=== PATIENT | female | born 1970 | race Caucasian/White ===

== ENCOUNTER 2023-08-21 09:54 | Inpatient (IN) | payer OTHER, SELFPAY ==
[2023-08-21] VITALS (29 sets, daily range): BP systolic 105–149; BP diastolic 66–97; BMI 39.5; BMI 39.8
[2023-08-21] MEDS: LOW STRENGTH ASPIRIN 81 MG PO ×5 (07:31→07:33)
[2023-08-21] MEDS: NITROGLYCERIN PREMIX 250 IV (08:55)
--- NOTE | 2023-08-21 08:59 | ITS.CL.CATH ---
Stereoptician - Catheterization
Cardiac Catheterization
Procedure Report:
LEFT HEART CATHETERIZATION
Date of Procedure: August 21, 2023
Procedures performed:
1: Coronary angiography
2: Left ventricular hemodynamic assessment
Primary Care Physician: Dr. Lakia Navarro
Primary Petroleum Refinery Operator: Dr. Reza Martin
INDICATION: The patient is a 53-year-old woman with a past medical history of hypertension and hyperlipidemia who presents with crescendo angina. She reports experiencing chest discomfort with going up stairs as recently as last night.
ACCESS: The patient was prepped and draped in usual sterile fashion. A 5 Swiss sheath was placed in the right radial artery using the Seldinger over the wire technique.
HEMODYNAMIC FINDINGS (mmHg):
LV(s/d,EDP): 129/15, 24
Ao(s/d,m): 129/78, 93
ANGIOGRAPHIC FINDINGS:
Single-plane Left Ventriculography in [facility] Projection: Not done. Echocardiography performed on November 29, 2022 was benign with normal LV function and no significant valvular disease. EF at that time was 60 to 65%.
Coronary Angiography:
Dominance: Right
Left Main: Distal hazy 70 to 80% stenosis.
Left Anterior Descending: The left anterior descending artery is a medium to large caliber vessel that has a smooth mid 50% stenosis. It gives rise to 1 major diagonal branch which takes off distal that stenosis. The distal vessel appears
angiographically normal and an excellent surgical target.
Ramus intermedius: Large caliber bifurcating vessel that is widely patent and is a good surgical target.
Left Circumflex: The left circumflex is a medium caliber nondominant system that gives rise to 1 major bifurcating obtuse marginal branch. The circumflex has a smooth mid 40% stenosis. Bifurcating OM1 appears to be a good surgical target.
Right Coronary: Medium caliber dominant vessel that gives rise to a medium caliber posterior descending artery and smaller posterior left ventricular branch system. There are moderate nonobstructive luminal irregularities in the mid RCA. The other
vessels appear widely patent with normal flow and no obstructive disease.
Fluoroscopy Time (min): 4.4
Radiation Dose (mGy): 468
DAP (Gy.cm2): 29
Closure device: None. A TR band was applied for hemostasis at the right wrist.
Complications: None.
ASSESSMENT:
1: Significant obstructive left main disease as described above. Will admit for urgent CABG evaluation.
2: Elevated left regular filling pressures.
CONCLUSIONS and RECOMMENDATIONS:
1: Admit to CVICU for urgent CABG evaluation. Start IV nitroglycerin.
2: Will repeat echo now.
Adrianna Da Silva M.D.
Copy to: Dr. Lakia Navarro
[2023-08-21] MEDS: VERSED 1 MG IV (09:00)
--- NOTE | 2023-08-21 09:08 | PTCARENOTE ---
Pt recd s/p cath procedure. She was having what she described as a pinching pain, NTG started at 10mcg, BP started at 149/74 now her BP is 128/77 ECG obtained no change. And Robert saw pt and and spoke briefly regarding the
procedure. She became upset and Versed 1mg given IV. pt appears comfortable now stated its better
[2023-08-21] MEDS: NSS 1000 IV (09:21)
--- NOTE | 2023-08-21 09:45 | PTCARENOTE ---
report given to PEST CONTROL SUPERVISOR. Pt is conversive and appears comfortable, Bp 130/77. NSR 62. Radial band had a slight leak and replaced the 3ml sugey t was removed
--- NOTE | 2023-08-21 09:50 | CONSULT.CT ---
Consultation
-
Date/Time Consultation Requested: 08/21/23 1000
Date/Time Consultation Performed: 08/21/23 1025
Requesting Provider: Myles Da Silva MD
Performing Provider: Pal Bacon MD
Reason for Consultation: CABG Eval
Patient History
Physicians
Family Physician: Lakia Navarro
Outpatient Technician Plant And Maintenance: Reza Martin DO
Inpatient Technician Plant And Maintenance: Myles Da Silva
History of Present Illness
53-year-old female with past medical history of HLD, HTN, pre-DM, hypothyroidism, Summer's disease, fibromyalgia, fatty liver, and mast cell activation syndrome presented to [facility] for a elective left heart cath. She has been
experiencing chest pain and shortness of breath with minimal activity on and off for 1 year. She now lives more of a sedentary lifestyle to avoid chest pain.
During the left heart cath it was found that she had 70 to 80% stenosis of the left main and was taken to the CCL recovery area. While she was there, she c/o of mild CP and was given versed and started on a NTG gtt. CT was consulted for surgical
eval.
Past Medical History
Past Medical History: Angina, HTN, Hypercholesterolemia, Hypothyroidism, Psychiatric (Anxiety) and SOB
HLD, HTN, pre-DM, hypothyroidism, Summer's disease, fibromyalgia, fatty liver, and mast cell activation syndrome
Past Surgical History
Past Surgical History: Appendectomy
Dental History
Partial Upper Dentures
Family History
Mother: at Age
Father: at Age
Family Medical History: Aneurysm and CAD
Social History
Alcohol: Former (Quit in 2009)
Drug: None
Tobacco: Former Smoker (Quit in 2009)
Personal:
Living: With Spouse
Employment: Not Employed
Allergies
Allergy/AdvReac Type Severity Reaction Status Date / Time
[id number] Reductase Allergy Severe Hives Verified 08/21/23 07:30
Inhibitor
Home Medications
�Medication �Instructions �Recorded �Confirmed �Type
aspirin 81 mg capsule 324 mg PO DAILY 08/21/23 08/21/23 History
atorvastatin 10 mg tablet (Lipitor) 10 mg PO HS 08/21/23 08/21/23 History
duloxetine 30 mg capsule,delayed 30 mg PO DAILY 08/21/23 08/21/23 History
release (Cymbalta)
levothyroxine 137 mcg tablet 137 mcg PO DAILY 08/21/23 08/21/23 History
(Synthroid)
propranolol 80 mg capsule,extended 80 mg PO DAILY 08/21/23 08/21/23 History
release 24 hr
valsartan 40 mg tablet (Diovan) 80 mg PO DAILY 08/21/23 08/21/23 History
Review of Systems
-
History Source: Patient
General: Reports Fatigue
HEENT: Reports No Symptoms
Respiratory: Reports SOB
Cardiac: Reports Chest Pain
Abdomen/GI: Reports No Symptoms
: Reports No Symptoms
Musculoskeletal: Reports No Symptoms
Skin: Reports No Symptoms
Neurological: Reports No Symptoms
Vascular: Reports No Symptoms
Physical Exam
Vital Signs
Temp 97 F 08/21/23 07:20
Temp route: Oral 08/21/23 07:20
Pulse 65 08/21/23 07:20
Resp Rate 16 08/21/23 07:20
Blood pressure 136/71 08/21/23 07:20
Blood pressure extremity used: Left upper arm 08/21/23 09:40
Position: Lying 08/21/23 09:40
SaO2 97 08/21/23 08:43
Oxygen Mode of Delivery Room air 08/21/23 09:40
Can the patient verbally communicate their pain? Yes 08/21/23 09:40
Actual Weight 104.326 kg 08/21/23 08:55
Body Mass Index (BMI) 39.5 08/21/23 08:55
Exam
General: Well Developed and Well Nourished
HEENT: Normocephalic
Respiratory: Clear
Cardiac: S1/S2
GI: Soft and Other (Obese)
Rectal: Deferred by Provider
Skin: Warm
Neuro: AO x 3
Extremities: Pulses (+1)
Lymph: No Lymphadenopathy
Psych: Calm
Assessment / Plan
-
53-year-old female with past medical history listed above presented for an elective cath after having chest pain and shortness of breath for [address] surgery consulted for surgical evaluation of left main disease.
#CAD
-Patient's case will be discussed with attending physician. Further details regarding surgical timing intervention will be determined after attending physicians full evaluation
-Routine preoperative cardiothoracic surgery orders will be initiated.
-STS risk stratification score will be calculated after preoperative testing is complete
-Continue nitroglycerin and heparin gtt per cardiology.
- Will start Oral anxiolytics
--- NOTE | 2023-08-21 10:00 | PTCARENOTE ---
pt received from CCL, oriented. SB/SR on the monitor, HR 50-60s. SBP 110-140s. palpable pulses. pt on RA, 95-100% POX. lungs clear. denies CP or SOB. pt abdomen round s/n, denies n/v. diet ordered. R radial TR band in place. PIV. Nitro gtt running
as ordered. admission interview completed. home meds reviewed in CCL. allergies confirmed. see worklist for VS, I&O, and assessment.
--- NOTE | 2023-08-21 12:00 | PTCARENOTE ---
pt VSS, R radial site c/d/i, no s/s of bleeding or hematoma. pt denies CP, nitro gtt running as ordered.
[2023-08-21 12:26] LABS: Hematocrit 36.7 % (37.0-47.0); Mean Corp Hgb Conc. 32.7 g/dL (33.0-37.0); Mean Corpuscular Hgb 29.2 pg (27.0-31.0); Mean Corpuscular Volume 89.3 fL (81.0-99.0); Mean Platelet Volume 10.6 fL (7.4-10.4); Platelet Count 266 10^3/uL (130-400); Red Blood Cell Count 4.11 10^6/uL (4.20-5.40); Red Cell Dist. Width 13.4 % (11.5-14.5); White Blood Cell Count 6.1 10^3/uL (4.8-10.8)
[2023-08-21 12:45] LABS: APTT 27.1 Sec (23.4-35.0)
[2023-08-21] MEDS: TYLENOL 650 MG PO ×2 (13:36→17:37)
[2023-08-21] MEDS: XANAX 0.5 MG PO ×2 (13:36→20:08)
--- NOTE | 2023-08-21 13:58 | W.PN.UPDATE ---
Update Note
Progress Note Update
Procedure Type:�Isolated CABG
PERIOPERATIVE OUTCOME ESTIMATE %
Operative Mortality 0.512%
Morbidity & Mortality 3.5%
Stroke 0.364%
Renal Failure 0.363%
Reoperation 1.19%
Prolonged Ventilation 1.81%
Deep Sternal Wound Infection 0.27%
Long Hospital Stay (>14 days) 1.08%
Short Hospital Stay (<6 days)* 69.6%
Clinical Summary
Planned Surgery: Isolated CABG, Urgent, First cardiovascular surgery
Demographics: 53 year old, White, female, 105kg, 163cm, BMI: 39.5 kg/m�
Lab Values: Creatinine: 0.9 mg/dL, Hematocrit: 36.7%, WBC Count: 6.1 10�/�L, Platelet Count: 744991 cells/�L
Substance Abuse: Former smoker
Risk Factors / Comorbidities: Hypertension, Family Hx of CAD
Cardiac Status: Ejection Fraction = 70%
Coronary Artery Disease: 1 vessel diseased, Left Main Stenosis >=50%, Unstable Angina
Valve Disease: Trivial/Trace MR
[2023-08-21] MEDS: CYMBALTA DELAYED RELEASE 30 MG PO (14:45)
--- NOTE | 2023-08-21 16:10 | PTCARENOTE ---
pt VSS, R radial site c/d/i, no s/s of bleeding or hematoma. pt denies CP, nitro gtt running as ordered. Tylenol given for DORSEY w/ improvement. PRN Xanax 0.5mg PO given for anxiety. pt ambulates to bathroom to void.
[2023-08-21] MEDS: HEPARIN 25000 UNITS/250 ML IV (16:34)
--- NOTE | 2023-08-21 16:38 | CM ---
CM following for DC planning needs.
Met w/ patient at bedside to complete initial assessment.
Pt. resides w/ spouse and 2 sons (11 yo, 13 yo) in a private, multi level home. Functionally, patient is indep. at baseline w/ ADLs, mobility without the use of any assisted device.
Pt. has Rx plan and uses [facility] for Rx needs.
Will plan to meet w/ patient on ., 08/21 for pre-op teaching.
CM to follow.
[2023-08-21] MEDS: LIPITOR 80 MG PO (17:36)
--- NOTE | 2023-08-21 18:27 | PTCARENOTE ---
attempted to titrate Nitro gtt to 5mcg/min. pt states / 'chest pinching', BLOWER MECHANIC aware, Nitro increased to 10mcg/min. Tylenol given for DORSEY. at bedside.
--- NOTE | 2023-08-21 20:00 | PTCARENOTE ---
Assumed care of patient at 1900. Patient is AAOx4, follows commands appropriately, moves all extremities. Lung sounds are clear and equal bilaterally, patient is on RA saO2 at 97%. Heart sounds have a regular rhythm, patient is SR/ST on the monitor.
Patient has normal palpable pulses and no edema. Patient has active BS throughout all four quadrants. There is a R wrist puncture from cardiac cath with 4x4 gauze dressing that is CDI. Patient has R AC and L hand PIV. Heparin @1400 units and Nitro
@10mcg. Patient scheduled for surgery tomorrow will start prep tonight. No c/o pain at this time. Patient is stable.
[2023-08-21] MEDS: FIORICET 1 TAB PO ×2 (20:08→23:07)
--- NOTE | 2023-08-21 20:20 | PTCARENOTE ---
Assumed care of patient at 1900. Patient found resting in bed at time of assessment. Patient is AOx4, follows commands appropriately, moves all extremities. Patient reports anxiety at this time. Lung sounds are clear and equal bilaterally. Patient
is on RA saO2 at 98%. Heart sounds have a regular rate and rhythm. Patient has normal palpable pulses. There is no edema noted. Patient has active BS throughout all four quadrants. Reports poor appetite during day. Patient has L hand PIV receiving
heparin at 1000 units and Nitro at 10mcg. Patient also has puncture of R wrist from CC with 4x4 gauze dressing that is CDI. Patient has no complaints at this time. VSS.
[2023-08-21] MEDS: LOPRESSOR 12.5 MG PO (20:59)
[2023-08-22] VITALS (16 sets, daily range): BP systolic 107–140; BP diastolic 56–89; BMI 39.6
--- NOTE | 2023-08-22 | PTCARENOTE ---
Patient reassessed. Remains NSR on the monitor. Recurrent c/o pain 2/2 migraine. Patient given tylenol and firoricet for pain with some relief. VSS. Heparin and Nitro gtt remain on. Heparin gtt adjusted to 1200 per PTT.
--- NOTE | 2023-08-22 03:00 | PTCARENOTE ---
Patient reassessed. VSS. Continues to c/o severe head pain and some nausea 2/[address] TORCH HEATER notified. Tylenol and firorcet administered. Given 1xdose of benadryl and reglan. Patient sleeping at this time. AM labs obtained. Patient is stable.
[2023-08-22] MEDS: SYNTHROID 137 MCG PO (05:02)
[2023-08-22] MEDS: FIORICET 1 TAB PO ×4 (05:02→23:47)
[2023-08-22] MEDS: TYLENOL 650 MG PO ×2 (05:02→19:22)
--- NOTE | 2023-08-22 05:30 | PTCARENOTE ---
Patient reassessed. VSS. Continues to c/o severe head pain and some nausea 2/[address] LOCKER ROOM SUPERVISOR notified. Tylenol and firorcet administered. Given 1xdose of benadryl and reglan. Patient sleeping at this time. AM labs obtained. Patient is stable.
[2023-08-22] MEDS: BENADRYL 12.5 MG IV (05:36)
[2023-08-22] MEDS: REGLAN 10 MG IV ×2 (05:37→23:47)
[2023-08-22 06:19] LABS: Hematocrit 36.7 % (37.0-47.0); Hemoglobin 12.4 g/dL (12.0-16.0); Mean Corp Hgb Conc. 33.8 g/dL (33.0-37.0); Mean Corpuscular Volume 88.9 fL (81.0-99.0); Mean Platelet Volume 10.5 fL (7.4-10.4); Platelet Count 239 10^3/uL (130-400); Red Blood Cell Count 4.13 10^6/uL (4.20-5.40); Red Cell Dist. Width 13.3 % (11.5-14.5); White Blood Cell Count 7.1 10^3/uL (4.8-10.8)
[2023-08-22 06:22] LABS: INR 1.04; PT 13.4 Sec (11.4-14.6)
[2023-08-22 06:23] LABS: APTT 39.4 Sec (23.4-35.0)
[2023-08-22 06:48] LABS: ALT (SGPT) 40 U/L (0-35); AST (SGOT) 33 U/L (14-36); Albumin 4.3 g/dl (3.5-5.0); Alkaline Phosphatase 122 U/L (38-126); Blood Urea Nitrogen 10 mg/dl (7-17); Calcium 9.6 mg/dl (8.4-10.2); Carbon Dioxide 25 mmol/L (22-30); Chloride 103 mmol/L (98-107); Direct Bilirubin 0.4 mg/dl (0.0-0.4); Estimated Creatinine Clearance > 125 ml/min; Glucose 142 mg/dl (70-99); HDL Cholesterol 35 mg/dl; Potassium 4.7 mmol/L (3.5-5.1); Sodium 138 mmol/L (135-145); Total Bilirubin 0.7 mg/dl (0.2-1.3); Total Cholesterol 227 mg/dl (50-199); Total Protein 7.2 g/dl (6.3-8.2); Triglyceride 420 mg/dl (10-149); eGFR > 60.00
[2023-08-22 07:14] LABS: LDL Cholesterol, Direct 125 mg/dl
[2023-08-22] MEDS: LOPRESSOR 12.5 MG PO (07:59)
[2023-08-22] MEDS: LOW STRENGTH ASPIRIN 81 MG PO (07:59)
[2023-08-22] MEDS: CYMBALTA DELAYED RELEASE 30 MG PO (08:00)
[2023-08-22] MEDS: XANAX 0.5 MG PO ×2 (08:00→14:06)
--- NOTE | 2023-08-22 08:00 | PTCARENOTE ---
pt received from previous RN, oriented, in bed. SR on the monitor, HR 70s. no c/o CP or SOB. Nitro gtt running as ordered. palpable pulses. pt on RA, 98% POX, lungs clear. pt abdomen s/n, denies n/v presently. tolerating diet. ambulates to bathroom
to void. R wrist site c/d/i. PIV x2. heparin gtt running per protocol. see worklist for VS, I&O, and assessment.
[2023-08-22 09:01] LABS: Glycohemoglobin (HgbA1c) 6.3 % (4.0-5.6)
--- NOTE | 2023-08-22 09:47 | W.PN.UPDATE ---
Update Note
Progress Note Update
Very pleasant 53 y/o with recent cath showing left main cad. Pt with multiple comorbidities. Pt has complaints of daily exertional angina for over 1 year, with associated sob. It has worsened lately, and she had cp post cath requiring Heparin and
Iv ntg. Cath reviewed with patient. I agree grafts to lad/ramus/om. Echo normal. Recommendation for cabg explained. Risks, complications, benefits and alternatives all reveiwed. All questions answered. Pt is agreeable to proceed with cabg in
am.
--- NOTE | 2023-08-22 10:49 | W.PN.CARDCBS ---
Addendum entered and electronically signed by Reza Hurt MD 08/22/23 14:18:
Attending addendum: Patient seen and examined. PA note reviewed and findings confirmed by me. Briefly, 53 y/o female with familial hyperlipidemia under marginal control. She has a history of 'mast cell activation' with multiple allergies. She
presented for coronary angiography and was found to have multivessel coronary artery disease for which she is now referred for coronary artery bypass grafting
.-08/21/2023: LM: Hazy 70-80% stenosis. LAD mid 50%, RI: Widely patent sizable vessel. LCx: OM1 smooth 40$, RCA: mod noncritical LI. LVEF: 60-65%
RECOMMENDATION:
-Aspirin 81 mg daily
-Continue heparin and IV nitroglycerin until surgical intervention
-CT surgical evaluation ongoing
-Agree with high intensity statin therapy including 80 mg of atorvastatin. She will likely need ezetimibe and/or PCSK9 which can be evaluated as an outpatient
Original Note:
Today's Communication / Plan
-
Heparin and Nitro gtt running
Cont Reglan as a PRN for now and then stop once Nitro gtt stopped due to potential increase in Reglan side effects
Impression / Plan
-
PCP: Dr. Palencia
Cardiology: Dr. Martin
Impression:
Significant obstructive LM CAD by cath 08/21/23
Chest pain leading to cath
FH CAD
Untreated hyperlipidemia
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
FMR
Obese, BMI 39.6
Fatty liver
h/o ETOH use disorder, sober since 2008
Hyperglycemia and pre-diabetes
Echo 08/21/2023: EF 76%, normal diastolic function, normal RV size and function, no significant valvular pathology
Plan:
-Patient follows with Dr. Martin at [facility]. Patient has a h/o HTN, untreated hyperlipidemia and FH of CAD and complained with chest pain and BLACK. Patient had an unremarkable Lexiscan mibi in 2022 and the decision was made to proceed with cardiac cath.
Patient came to for elective cardiac cath 08/21/23 and was found to have significant obstructive left main disease. Patient was admitted and is now on Heparin and Nitro gtt. Nitro gtt started for pinching type of chest pain.
-Patient remains on Heparin gtt. Plt # stable at 239.
-Nitro gtt running at 10. Patient with DORSEY/migraine overnight that improved with Reglan. Patient reported symptomatic improvement with Reglan and now ordered as a PRN q 6 hours. Lexicomp interaction check performed by me shows that toxicity effects
of Reglan might be increased when also given with duloxetine. Given that OR is planned for AM and that Nitro gtt will then be turned off will continue with Reglan and d/c once Nitro gtt stopped.
-Echo reviewed above. No significant valve disease.
-Direct LDL 125, TG 420, total cholesterol 227. Patient had flushing and dizziness with Crestor and Pravachol in the past related to mast cell activation syndrome. Patient was previously recommended statin by her primary property technician and referred to
an real estate listing consultant to navigate the mast cell activation syndrome and she did not see the real estate listing consultant, but was tolerating atorvastatin 10 mg daily as of 08/13/23 ATC appt. Consider addition of PCSK9 as an outpatient.
-Hyperglycemia noted on labs and HgbA1c was 6.3 consistent with pre-diabetes.
Progress Note - Lumber [place]ier
Subjective
Date of Service: August 22, 2023
Reglan helped migraine overnight
Objective
Labs:
08/22/23 05:57
08/22/23 05:57
Labs
Hgb 12.4 g/dL (12.0-16.0) 08/22/23 05:57
Hct 36.7 % (37.0-47.0) L 08/22/23 05:57
Plt Count 239 10^3/uL (130-400) 08/22/23 05:57
PT 13.4 Sec (11.4-14.6) 08/22/23 05:57
INR 1.04 08/22/23 05:57
APTT 39.4 Sec (23.4-35.0) H 08/22/23 05:57
Sodium 138 mmol/L (135-145) 08/22/23 05:57
Potassium 4.7 mmol/L (3.5-5.1) 08/22/23 05:57
BUN 10 mg/dl (7-17) 08/22/23 05:57
Creatinine 0.6 mg/dL (0.6-1.0) 08/22/23 05:57
Glucose 142 mg/dl (70-99) H 08/22/23 05:57
Vital Signs and I&O:
Vital Signs
Temp Pulse Resp BP Pulse Ox
97.8 F 87 16 120/80 98
08/22/23 08:00 08/22/23 10:30 08/22/23 08:00 08/22/23 08:00 08/22/23 10:35
Vital Signs
Temp Pulse Resp BP Pulse Ox
97.8 F 87 16 120/80 98
08/22/23 08:00 08/22/23 10:30 08/22/23 08:00 08/22/23 08:00 08/22/23 10:35
Intake & Output
08/20/23 08/21/23 08/22/23 08/23/23
06:59 06:59 06:59 06:59
Intake Total 621.3 / 621.3 46.5 / 46.5
Balance 621.3 / 621.3 46.5 / 46.5
--- NOTE | 2023-08-22 12:30 | PTCARENOTE ---
pt VSS, no changes in assessment. no c/o CP or SOB.
[2023-08-22 12:49] LABS: Glucose - Point of Care 135 mg/dl (70-99)
[2023-08-22] MEDS: HEPARIN 25000 UNITS/250 ML IV (13:00)
[2023-08-22 13:33] LABS: APTT 74.8 Sec (23.4-35.0)
--- NOTE | 2023-08-22 15:22 | CM ---
CM following for DC planning needs.
Met w/ patient at bedside to complete pre-op teaching.
Plan for CABG 08/22.
Reviewed pre and post op routines.
Discussed post op restrictions to include lifting, driving, flying and sternal precautions.
Cardiac Surgery booklet provided.
Discussed post op MD appointments, Cardiac Rehab and visit from CT Transitional Care RN.
Plan for CABG 08/22
Antic. DC plan is for home w/ CT Transitional Care RN.
CM to follow.
[2023-08-22] MEDS: DULCOLAX 5 MG PO (15:31)
[2023-08-22] MEDS: MYLICON 80 MG PO (15:31)
--- NOTE | 2023-08-22 15:47 | PTCARENOTE ---
Assumed care of patient at 1500. Pt is awake, alert, and oriented. No complaints of chest pain at this time. Pt remains SR with HR 90's. BP 132/82 MAP 96. Pulse oximetry 97% on room air. Bowel sounds active. Pt requesting stool softener, CT PA
aware, Dulcolax administered. Voiding without issue in bathroom. Right radial site CDI, pulse palpable. Pt remains on heparin gtt at 1400units/hr and Nitro gtt at 10mcg/min. Pt currently resting comfortably in bed with call cline within reach.
[2023-08-22] MEDS: LIPITOR 80 MG PO (17:34)
[2023-08-22] MEDS: XANAX 1 MG PO (18:02)
[2023-08-22 18:04] LABS: Glucose - Point of Care 104 mg/dl (70-99)
[2023-08-22] MEDS: LOPRESSOR 25 MG PO (19:24)
[2023-08-22 20:08] LABS: APTT 73.1 Sec (23.4-35.0)
[2023-08-23] VITALS (14 sets, daily range): BP systolic 87–133; BP diastolic 56–86; BMI 39.3
--- NOTE | 2023-08-23 01:53 | PTCARENOTE ---
Addendum entered by Johnnie Gale RN 08/23/23 04:35:
Patient placed on 2L O2 HS per CT PA given patient's tachycardia and general discomfort. saO2 at 97% prior to oxygen application.
Original Note:
Patient reassessed. VSS. Firocet and Reglan given for head pain and nausea. SR on the monitor.
--- NOTE | 2023-08-23 04:36 | PTCARENOTE ---
Patient reassessed. Patient is SR/ST on the case monitor. All other VSS. Surgical prep completed. AM labs obtained. Patient resting in bed at this time.
[2023-08-23] MEDS: FIORICET 1 TAB PO (05:50)
[2023-08-23 05:51] LABS: Hemoglobin 12.2 g/dL (12.0-16.0); Mean Corp Hgb Conc. 33.9 g/dL (33.0-37.0); Mean Corpuscular Hgb 29.5 pg (27.0-31.0); Mean Platelet Volume 10.4 fL (7.4-10.4); Platelet Count 245 10^3/uL (130-400); Red Blood Cell Count 4.14 10^6/uL (4.20-5.40); Red Cell Dist. Width 13.3 % (11.5-14.5); White Blood Cell Count 7.2 10^3/uL (4.8-10.8)
[2023-08-23] MEDS: LOPRESSOR 25 MG PO (05:51)
[2023-08-23 06:02] LABS: APTT 75.8 Sec (23.4-35.0)
[2023-08-23] MEDS: SYNTHROID 137 MCG PO (06:28)
[2023-08-23] MEDS: HEPARIN 25000 UNITS/250 ML IV (07:37)
--- NOTE | 2023-08-23 08:00 | PTCARENOTE ---
pt received from previous RN, oriented, in bed. SR on the monitor, HR 70s-90s. no c/o CP or SOB. Nitro gtt running as ordered. palpable pulses. pt on RA, 96-99% POX, lungs clear. pt abdomen s/n, denies n/v presently. NPO. ambulates to bathroom to
void. R wrist site c/d/i. PIV x2. heparin gtt running per protocol. see worklist for VS, I&O, and assessment.
[2023-08-23] MEDS: LOPRESSOR PO (08:29)
[2023-08-23] MEDS: LOW STRENGTH ASPIRIN PO (08:29)
[2023-08-23] MEDS: MAGNESIUM OXIDE 500 MG PO (08:53)
[2023-08-23] MEDS: BACTROBAN 2% OINTMENT 1 APPLIC NASAL ×2 (08:54→20:36)
[2023-08-23] MEDS: CYMBALTA DELAYED RELEASE 30 MG PO (08:54)
[2023-08-23] MEDS: PROTONIX 40 MG PO (08:54)
--- NOTE | 2023-08-23 09:04 | CM ---
Patient in OR today for CABG.
Plan is for home w/ CT Transitional Care RN.
CM to follow.
[2023-08-23] MEDS: TYLENOL 650 MG PO (09:52)
--- NOTE | 2023-08-23 10:04 | PTCARENOTE ---
pt c/o headache, ice pack applied to back of neck. PRN Tylenol given.
--- NOTE | 2023-08-23 10:12 | W.PN.CARDCBS ---
Today's Communication / Plan
-
PLAN:
-CABG planned this afternoon
Impression / Plan
-
PCP: Dr. Palencia
Cardiology: Dr. Martin
Impression:
Significant obstructive LM CAD by cath 08/21/23
Chest pain leading to cath
FH CAD
Hyperlipidemia
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
FMR
Obese, BMI 39.6
Fatty liver
h/o ETOH use disorder, sober since 2008
Hyperglycemia and pre-diabetes
Hx of migraine DORSEY
Echo 08/21/2023: EF 76%, normal diastolic function, normal RV size and function, no significant valvular pathology
Plan:
-CABG planned this afternoon.
-Continue high intensity statin
-Patient remains on Heparin gtt. Plt # stable at 245
-Nitro gtt running at 10.
-Patient with DORSEY/migraine overnight
-Echo reviewed above. No significant valve disease.
-Direct LDL 125, TG 420, total cholesterol 227. Tolerating higher dose of statin for now. Hx of flushing and dizziness with Crestor and Pravachol in the past related to mast cell activation syndrome. Patient was previously recommended statin by her
primary ceramic saw tender and referred to an compliance examiner to navigate the mast cell activation syndrome and she did not see the compliance examiner, but was tolerating atorvastatin 10 mg daily as of 08/13/23 ATC appt. Consider addition of PCSK9 as an outpatient.
-Hyperglycemia noted on labs and HgbA1c was 6.3 consistent with pre-diabetes.
Progress Note - Feed Mixer
Subjective
Date of Service: August 23, 2023
Complaining of migraine headache pain
Objective
Labs:
08/23/23 05:40
08/22/23 05:57
Labs
Hgb 12.2 g/dL (12.0-16.0) 08/23/23 05:40
Hct 36.0 % (37.0-47.0) L 08/23/23 05:40
Plt Count 245 10^3/uL (130-400) 08/23/23 05:40
PT 13.4 Sec (11.4-14.6) 08/22/23 05:57
INR 1.04 08/22/23 05:57
APTT 75.8 Sec (23.4-35.0) H 08/23/23 05:40
Sodium 138 mmol/L (135-145) 08/22/23 05:57
Potassium 4.7 mmol/L (3.5-5.1) 08/22/23 05:57
BUN 10 mg/dl (7-17) 08/22/23 05:57
Creatinine 0.6 mg/dL (0.6-1.0) 08/22/23 05:57
Glucose 142 mg/dl (70-99) H 08/22/23 05:57
Vital Signs and I&O:
Vital Signs
Temp Pulse Resp BP Pulse Ox
97.8 F 90 18 107/73 96
08/23/23 06:30 08/23/23 10:00 08/23/23 08:00 08/23/23 07:44 08/23/23 09:31
Vital Signs
Temp Pulse Resp BP Pulse Ox
97.8 F 90 18 107/73 96
08/23/23 06:30 08/23/23 10:00 08/23/23 08:00 08/23/23 07:44 08/23/23 09:31
Intake & Output
08/20/23 08/21/23 08/22/23 08/23/23
23:59 23:59 23:59 23:59
Intake Total 21.3 / 21.3 708.5 / 708.5 46.5 / 46.5
Balance 21.3 / 21.3 708.5 / 708.5 46.5 / 46.5
Physical Exam
Physical Exam
Gen: Awake, alert and complaining of DORSEY
HEENT: NC/AT, sclera anicteri
Lungs: Clear anterior
CV: RRR
Ext: No edema
--- NOTE | 2023-08-23 11:02 | W.CVOR.SURPR ---
CVOR Surgeon Immed Pre Op
-
I have examined this patient prior to performance of the scheduled procedure.
The patient's condition is unchanged from the time of the dictated/written History and
Physical and the patient is able to undergo the scheduled procedure.
[2023-08-23 11:15] LABS: Glucose - Point of Care 104 mg/dl (70-99)
--- NOTE | 2023-08-23 13:06 | PTCARENOTE ---
pt VSS, blood sugar 104. heparin gtt off call or contact centre operator to OR, pt sent to CVOR on nitro gtt, report given to CVOR RN.
[2023-08-23 13:24] LABS: ACT+ - POC 115 Seconds (82-134)
[2023-08-23 13:28] LABS: B.E. - POC -0.2 mmol/L; Glucose - POC 104 mg/dl (65-99); HCO3 - POC 24 mmol/L (21-29); Hematocrit - POC 36 % PCV (37-47); Hemodilution- POC No; Hemoglobin Calculated - POC 12.1; Ionized Calcium - POC 1.14 mmol/L (1.12-1.27); O2 Saturation %Calculated-POC 99.9 5 (92-96); PCO2 - POC 38 mmHg (35-45); PO2 - POC 298 mmHg (80-100); Potassium - POC 3.8 mmol/L (3.6-5.0); Sodium - POC 141 mmol/L (135-145); pH - POC 7.42 (7.35-7.45)
[2023-08-23 14:02] LABS: Urine Albumin Negative (Neg - Trace); Urine Bilirubin Negative (Negative); Urine Character Clear (Clear); Urine Color Straw; Urine Glucose Negative (Negative); Urine Ketone Negative (Negative); Urine Leukocyte Negative (Negative); Urine Nitrite Negative (Negative); Urine Occult Blood Negative (Negative); Urine Urobilinogen Negative (Neg - 1+)
[2023-08-23 15:14] LABS: B.E. - POC -1.9 mmol/L; Glucose - POC 165 mg/dl (65-99); HCO3 - POC 23 mmol/L (21-29); Hematocrit - POC 32 % PCV (37-47); Hemodilution- POC No; Ionized Calcium - POC 1.15 mmol/L (1.12-1.27); O2 Saturation %Calculated-POC 99.4 5 (92-96); PCO2 - POC 41 mmHg (35-45); PO2 - POC 165 mmHg (80-100); Potassium - POC 4.2 mmol/L (3.6-5.0); Sodium - POC 140 mmol/L (135-145); pH - POC 7.36 (7.35-7.45)
[2023-08-23 15:32] LABS: ACT+ - POC 565 Seconds (82-134)
[2023-08-23 15:58] LABS: ACT+ - POC 496 Seconds (82-134)
[2023-08-23 16:24] LABS: ACT+ - POC 546 Seconds (82-134)
[2023-08-23 16:27] LABS: B.E. - POC -0.4 mmol/L; Glucose - POC 200 mg/dl (65-99); HCO3 - POC 25 mmol/L (21-29); Hematocrit - POC 28 % PCV (37-47); Hemodilution- POC Yes; Hemoglobin Calculated - POC 9.4; Ionized Calcium - POC 0.98 mmol/L (1.12-1.27); O2 Saturation %Calculated-POC 99.9 5 (92-96); PCO2 - POC 44 mmHg (35-45); PO2 - POC 289 mmHg (80-100); Potassium - POC 4.9 mmol/L (3.6-5.0); Sodium - POC 138 mmol/L (135-145); pH - POC 7.37 (7.35-7.45)
[2023-08-23 16:49] LABS: B.E. - POC -0.8 mmol/L; Glucose - POC 221 mg/dl (65-99); HCO3 - POC 25 mmol/L (21-29); Hematocrit - POC 24 % PCV (37-47); Hemodilution- POC Yes; Hemoglobin Calculated - POC 8.3; Ionized Calcium - POC 1.02 mmol/L (1.12-1.27); O2 Saturation %Calculated-POC 99.8 5 (92-96); PCO2 - POC 46 mmHg (35-45); PO2 - POC 232 mmHg (80-100); Potassium - POC 4.2 mmol/L (3.6-5.0); Sodium - POC 139 mmol/L (135-145); pH - POC 7.34 (7.35-7.45)
[2023-08-23 16:52] LABS: ACT+ - POC 491 Seconds (82-134)
[2023-08-23 17:30] LABS: ACT+ - POC 96 Seconds (82-134)
[2023-08-23 17:32] LABS: B.E. - POC -4.7 mmol/L; Glucose - POC 165 mg/dl (65-99); HCO3 - POC 22 mmol/L (21-29); Hematocrit - POC 27 % PCV (37-47); Hemodilution- POC Yes; Hemoglobin Calculated - POC 9.2; Ionized Calcium - POC 1.28 mmol/L (1.12-1.27); O2 Saturation %Calculated-POC 94.7 5 (92-96); PCO2 - POC 46 mmHg (35-45); PO2 - POC 84 mmHg (80-100); Potassium - POC 3.6 mmol/L (3.6-5.0); Sodium - POC 141 mmol/L (135-145); pH - POC 7.28 (7.35-7.45)
[2023-08-23] MEDS: LIPITOR PO (17:35)
--- NOTE | 2023-08-23 17:54 | W.PN.CT.SURG ---
CT Surgery Operative Note
-
Pre-op Diagnosis: left main cad
stable angina
Post-op Diagnosis: Same
Procedure: Cabg x 3, on pump
acosta - lad
araceli- om
araceli- ramus
rigid sternal fixation
Primary Surgeon: Juan
Assisting Surgeons: Murt - assisted at chest
Specimen: None
Cultures: None
Complications / Blood Loss: None
Findings: Nino with preserved EF pre and post
good confuits
good targets
[2023-08-23 18:28] LABS: Glucose - Point of Care 124 mg/dl (70-99)
[2023-08-23 18:33] LABS: B.E. -6.2 mmol/L; HCO3 20.2 mmol/L (21-28); Ionized Calcium 1.15 mMOL/L (1.15-1.33); O2 Saturation % 99.4 % (94-98); PCO2 43 mmHg (32-35); PO2 113 mmHg (83-108); Potassium 3.6 mMOL/L (3.5-5.1); Sodium 139 mMOL/L (136-145); pH 7.28 (7.35-7.45)
[2023-08-23 18:34] LABS: Hematocrit 29.1 % (37.0-47.0); Platelet Count 248 10^3/uL (130-400)
[2023-08-23] MEDS: DILAUDID 0.5 MG IV (18:41)
[2023-08-23] MEDS: AZACTAM 2000 MG IV ×2 (18:41→18:42)
[2023-08-23] MEDS: NOVOLOG FLEXPEN-MODERATE RESISTANCE SC (18:42)
[2023-08-23] MEDS: STERILE WATER FOR INJECTION 10 ML IV ×2 (18:42)
[2023-08-23] MEDS: VANCOCIN 200 IV (18:42)
[2023-08-23] MEDS: PACERONE PO (18:42)
[2023-08-23] MEDS: NEURONTIN PO (18:42)
[2023-08-23] MEDS: NSS 500 IV (18:42)
[2023-08-23] MEDS: TYLENOL PO (18:43)
[2023-08-23 18:44] LABS: INR 1.42; PT 17.1 Sec (11.4-14.6)
[2023-08-23 18:45] LABS: APTT 28.6 Sec (23.4-35.0)
[2023-08-23] MEDS: KCL 50 IV ×2 (18:45→19:55)
[2023-08-23 18:46] LABS: Blood Urea Nitrogen 9 mg/dl (7-17); Estimated Creatinine Clearance 109 ml/min; Glucose 112 mg/dl (70-99); Magnesium 2.1 mg/dl (1.6-2.3)
--- NOTE | 2023-08-23 18:50 | W.PN.UPDATE ---
Update Note
Progress Note Update
53-year-old female with past medical history of HLD, HTN, pre-DM, hypothyroidism, Summer's disease, fibromyalgia, fatty liver, and mast cell activation syndrome presented to [facility] 08/20 for elective left heart cath due to 1 year
history of chest pain and shortness of breath with minimal activity. cardiac catheterization revealed 70-80% distal left main disease.
IV fluids: 1300
U.O.:� 400
Blood:� NONE
Wires:� v-wires
Inotropes:� none
Pressors:� Levophed @ 6
Sedatives:�Precedex
�
NEURO: sedated on Precedex, pupils +2mm B/L
RESP: #8OT @24cm> 500/60%/16/5. Lungs clear B/L. 1 mediastinal (30cc on arrival) and R/L pleural (30cc on arrival) chest tubes to -20cm suction. Sanguineous drainage
CV: RRR +S1, S2, no S3, no�rub, no murmur. Dermabond to median sternotomy. RIJ slick intact
ABD: obese, round, soft, no BS
EXT: no edema, +2/4 DP pulses B/L, no femoral bruit, left radial A-line intact
: Moise with clear yellow urine
�
A/P: POD #0 s/p CABG x 3 WANG-LAD; BASILIA-OM; BASILIA-RI. Rigid sternal fixation
LEONOR: EF�76%
- wean and extubate
# CAD
- will require ASA/Plavix, beta-florencia, Lipitor
# Hypothyroidism
- resume Synthroid POD #1
# MAST cell activation syndrome
- slow wean of Levophed
�
# acute surgical blood loss anemia-expected
-initial post-op Hb 10
- trend CBC
�
# Pre-diabetes (A1C 6.3)/obesity
- insulin infusion x 24h
- carb and calorie controlled diet
[2023-08-23 19:00] LABS: Glucose - Point of Care 97 mg/dl (70-99)
--- NOTE | 2023-08-23 19:00 | PTCARENOTE ---
pt received from CVOR @~1815, sedated on Precedex gtt, RASS -5. ST on the monitor, HR 100s. V wire in place, VVI 50/10. SBP 90-120s, Levophed gtt titrated for MAP as ordered. palpable pulses, trace generalized edema. pt mechanically ventilated, ETT
#8.0, 21cm@lip. SIMV 16, TV 550, PEEP 5, PS 5, FIO2 60%. 97% POX. lungs clear anteriorly. CTx3, no air leak or crepitus noted. abdomen round. Moise in place, clear yellow urine. sternal incision HEALTH EDUCATION AIDE, approximated. surgical bra in place. chest tube
dressing c/d/i. RIJ cordis w/ slick maintained. L radial Ania flushed, zeroed, and calibrated. PIV x2. insulin gtt running per protocol. lab work drawn, EKG completed, CXR completed. report given to Jose SESAY.
[2023-08-23] MEDS: CALCIUM CHLORIDE 10% SYRINGE 50 ML IV (19:33)
[2023-08-23] MEDS: CALCIUM CHLORIDE 10% SYRINGE 50 MG IV (19:33)
[2023-08-23] MEDS: DILAUDID 0.25 MG IV ×2 (19:44→20:47)
--- NOTE | 2023-08-23 19:49 | PTCARENOTE ---
assumed care of patient @ 1900. recieved pt intubated, sedated post CVOR. pupils equal and reactive to light. Sinus tach on monitor HR low 100s. V wire set to 50, 10. +pulses. Lungs clear anteriorally, 8.0 ET tube 21 @ lip, vent settings 18, 550,
5/5, 60 %. 3 chest tubes to wall suction no air leak, tidaling or crepitus. no clots noted in tubes. All surgical sites CDI. Surgical bra on - to stay on per Dr. Martinez. R IJ cordis with slic, L radial a-line, L hand 20 and R forearm 22. Insulin
per protocol, levo recieved at 5, precedex at 0.5.
[2023-08-23 20:02] LABS: B.E. -8.5 mmol/L; HCO3 17.3 mmol/L (21-28); PCO2 36 mmHg (32-35); PO2 105 mmHg (83-108); pH 7.29 (7.35-7.45)
[2023-08-23 20:12] LABS: Glucose - Point of Care 119 mg/dl (70-99)
[2023-08-23] MEDS: SENOKOT-S PO (20:36)
[2023-08-23] MEDS: SODIUM BICARBONATE 100 MEQ IV (20:48)
[2023-08-23 20:59] LABS: Glucose - Point of Care 96 mg/dl (70-99)
[2023-08-23 21:15] LABS: B.E. -0.1 mmol/L; HCO3 25.4 mmol/L (21-28); Ionized Calcium 1.32 mMOL/L (1.15-1.33); O2 Saturation % 99.5 % (94-98); PCO2 44 mmHg (32-35); PO2 113 mmHg (83-108); pH 7.37 (7.35-7.45)
[2023-08-23] MEDS: OFIRMEV 100 IV (21:42)
[2023-08-23 21:58] LABS: Glucose - Point of Care 141 mg/dl (70-99)
--- NOTE | 2023-08-23 22:03 | PTCARENOTE ---
pt more awake, following commands, MCCAIN. placed on CPAP trial at 5.
[2023-08-23 22:35] LABS: Hematocrit 28.5 % (37.0-47.0); Hemoglobin 9.8 g/dL (12.0-16.0); Platelet Count 220 10^3/uL (130-400)
[2023-08-23 22:36] LABS: B.E. -0.7 mmol/L; HCO3 24.9 mmol/L (21-28); O2 Saturation % 99.1 % (94-98); PCO2 44 mmHg (32-35); PO2 125 mmHg (83-108); Potassium 4.8 mMOL/L (3.5-5.1); pH 7.36 (7.35-7.45)
--- NOTE | 2023-08-23 22:50 | PTCARENOTE ---
pt extubated to 6L NC w/o incident
--- NOTE | 2023-08-23 23:07 | RESPNOTE ---
pt extubated to 6 LPM NC with RN and HOME BASED ASSISTANT at bedside. Pt presents with + vocalization and - stridor. IS done with 1250 ml maximum volume
[2023-08-23 23:24] LABS: Glucose - Point of Care 139 mg/dl (70-99)
[2023-08-24] VITALS (33 sets, daily range): BP systolic 88–125; BP diastolic 53–84; PULSE 101; O2SAT 97–98; BMI 40.1
[2023-08-24] MEDS: PACERONE 200 MG PO ×2 (00:05→08:20)
[2023-08-24] MEDS: LOW STRENGTH ASPIRIN 81 MG PO ×2 (00:05→08:19)
--- NOTE | 2023-08-24 00:18 | PTCARENOTE ---
pt tolerating ice chips - asa and amio given. call cline within reach, no change in assessment.
[2023-08-24] MEDS: TYLENOL PO (00:26)
[2023-08-24] MEDS: NEURONTIN PO (00:26)
[2023-08-24 01:07] LABS: Glucose - Point of Care 132 mg/dl (70-99)
[2023-08-24] MEDS: VANCOCIN 200 IV ×2 (01:11→13:18)
[2023-08-24 01:13] LABS: B.E. -0.5 mmol/L; HCO3 24.2 mmol/L (21-28); O2 Saturation % 98.9 % (94-98); PCO2 39 mmHg (32-35); PO2 99 mmHg (83-108)
[2023-08-24] MEDS: TORADOL 15 MG IV ×2 (01:14→06:57)
[2023-08-24 03:04] LABS: Glucose - Point of Care 151 mg/dl (70-99)
[2023-08-24 03:20] LABS: Hematocrit 25.9 % (37.0-47.0); Hemoglobin 8.9 g/dL (12.0-16.0); Mean Corp Hgb Conc. 34.4 g/dL (33.0-37.0); Mean Corpuscular Hgb 30.3 pg (27.0-31.0); Mean Corpuscular Volume 88.1 fL (81.0-99.0); Mean Platelet Volume 10.6 fL (7.4-10.4); Platelet Count 199 10^3/uL (130-400); Red Blood Cell Count 2.94 10^6/uL (4.20-5.40); Red Cell Dist. Width 13.4 % (11.5-14.5); White Blood Cell Count 10.7 10^3/uL (4.8-10.8)
--- NOTE | 2023-08-24 03:20 | W.PN.CT ---
Today's Communication / Plan
-
-pod 1
-no issues overnight. Extubated uneventfully at 10:45 pm
-drips: Insulin. Levo stopped @ ~3 [address]
-CT output: med 90/120, b/l pleur 65/95 in 12/24 hrs
-deline
-continue insulin
-d/c Moise
-current meds (ASA, Plavix, Lopressor, Amio, Lipitor, Protonix)
-encourage IS, OOB
Assessment / Plan
-
- MV-CAD with LM dz - s/p CABG x3 (Santos to Lad, Karol 'y-graft off Santos' to OM, Karol to Ramus) by Dr. Martinez on 08/23/23, pod #1
- Intraop LEONOR: normal EF 76% pre and post with no wma, nl RV
- HTN/HLD
- Pre-DM II (HgA1c 6.3)
- Class 2 obesity (BMI 39)
- Hypothyroidism/ Summer's disease
- Fibromyalgia
- Fatty liver
- Mast cell activation syndrome
- Former smoker, quit in 2009
- Acute postop blood loss anemia- stable, no active bleed
- Acute postop atelectasis
- Suspected acute postop pericarditis on ECG
Discussed patient care with: Nursing and Care Team
Subjective
Procedure
- s/p CABG x3 (Santos to Lad, Karol 'y-graft off Santos' to OM, Karol to Ramus) by Dr. Martinez on 08/23/23
-
Date of Service: August 24, 2023
Objective Data
-
PT 17.1 Sec (11.4-14.6) H 08/23/23 18:27
INR 1.42 08/23/23 18:27
APTT 28.6 Sec (23.4-35.0) 08/23/23 18:27
Vital Signs
Vital Signs
Temp Pulse Resp BP Pulse Ox
99.3 F 98 18 87/62 93
08/24/23 03:00 08/24/23 03:00 08/24/23 03:00 08/23/23 23:15 08/24/23 03:00
CT Intake/Output/Weight
08/23/23 08/23/23 08/24/23
06:59 18:59 06:59
Intake Total 135.6 / 753.6 618.0 / 753.6
Output Total 210 / 1000 790 / 1000
Balance -74.4 / -246.4 -172.0 / -246.4
SaO2: 93
Physical Exam
-
General: Awake and AOx3
Cardiovascular: Regular rate & rhythm, No Murmurs and No Rub
Respiratory: Decreased Breath Sounds
Sternum: Stable
Incision: Clean, Dry and Intact
Extremities: No Edema (2+ DP b/l)
Abdomen: soft, nontender, nondistended, decreased + bowel sounds
Data Reviewed
-
Lab Results: Results Reviewed
Medications: Active Meds Reviewed
Chest X-Ray: Report Reviewed and Image Reviewed
ECG: Report Reviewed and Image Reviewed
[2023-08-24 03:32] LABS: Blood Urea Nitrogen 11 mg/dl (7-17); Calcium 9.2 mg/dl (8.4-10.2); Carbon Dioxide 25 mmol/L (22-30); Chloride 106 mmol/L (98-107); Estimated Creatinine Clearance 109 ml/min; Glucose 195 mg/dl (70-99); Magnesium 1.9 mg/dl (1.6-2.3); Potassium 4.6 mmol/L (3.5-5.1); Sodium 137 mmol/L (135-145); eGFR > 60.00
[2023-08-24] MEDS: ROXICODONE 5 MG PO ×4 (03:44→19:42)
[2023-08-24] MEDS: MAGNESIUM SULFATE 50 IV (03:57)
--- NOTE | 2023-08-24 04:32 | PTCARENOTE ---
labs drawn and sent, pt bathed, levo turned off. lester given for pain. SLIC d/cd. working with IS ~ 1250.
[2023-08-24 05:17] LABS: Glucose - Point of Care 121 mg/dl (70-99)
[2023-08-24] MEDS: TYLENOL 1000 MG PO ×3 (06:22→22:45)
[2023-08-24] MEDS: SYNTHROID 137 MCG PO (06:24)
--- NOTE | 2023-08-24 06:36 | PTCARENOTE ---
núñez catheter, R IJ slic and L radial a line removed per orders. pt stood OOB to scale and to chair. BP 80s systolic in chair, levo turned on @ 2 with resolution to mid 90s systolic. put out 40 from med and 70 from pleural. CTPA aware.
--- NOTE | 2023-08-24 07:00 | PTCARENOTE ---
report received from nightshift RN. walking rounds completed. Pt OOB in chair, resting comfortable. AAOX3. SR on telemetry heart rate in 90s. v wire set VVI 50, ma 10. pulses palpable. +1 generalized edema. Levo infusing at 2 mcg/min. pt on 2L nasal
cannula, sat 97%. lung sounds diminished in bases. hypoactive bowel sounds. pt due to void post núñez removal, denies urge. surgical sites CDI. CTx3 to -20 suction. see worklist for full nursing assessment and interventions.
[2023-08-24 07:04] LABS: Glucose - Point of Care 145 mg/dl (70-99)
--- NOTE | 2023-08-24 08:04 | W.PN.ANS.POP ---
Anesthesia Post Operative
- Anesthesia Post Op Note
Vital Signs Stable-See Nursing Note: Yes (remains on levophed gtt)
Airway Patent: Yes
Adequate Pain Control: Yes
Change in Mental Status: No
Current Postoperative Nausea & Vomiting: No
Anesthesia Complications: No
General Anesthetic Recall: No
Unplanned Admission: No
Post Op Hydration Adequate: Yes
[2023-08-24 08:17] LABS: Glucose - Point of Care 113 mg/dl (70-99)
[2023-08-24] MEDS: NEURONTIN 100 MG PO ×3 (08:19→22:45)
[2023-08-24] MEDS: BACTROBAN 2% OINTMENT 1 APPLIC NASAL ×2 (08:19→19:43)
[2023-08-24] MEDS: PLAVIX 75 MG PO (08:19)
[2023-08-24] MEDS: CYMBALTA DELAYED RELEASE 30 MG PO (08:19)
[2023-08-24] MEDS: PROTONIX 40 MG PO (08:20)
[2023-08-24] MEDS: SENOKOT-S 1 TABLET PO ×2 (08:20→19:42)
[2023-08-24] MEDS: MAGNESIUM OXIDE 500 MG PO ×2 (08:20→19:43)
[2023-08-24] MEDS: LIDOCAINE 4% PATCH 1 PATCH TOPICAL (08:21)
[2023-08-24] MEDS: MYLICON 80 MG PO ×2 (08:32→18:37)
[2023-08-24] MEDS: NOVOLOG FLEXPEN-MODERATE RESISTANCE SC ×3 (08:46→18:16)
[2023-08-24] MEDS: LOPRESSOR PO (08:49)
--- NOTE | 2023-08-24 09:00 | PTCARENOTE ---
mediastinal chest tube dced, right and left pleurals placed to bulb, dressing changed.
[2023-08-24 09:20] LABS: Glucose - Point of Care 107 mg/dl (70-99)
[2023-08-24 10:23] LABS: Glucose - Point of Care 100 mg/dl (70-99)
--- NOTE | 2023-08-24 10:46 | W.PN.CARDCBS ---
Today's Communication / Plan
-
Overall doing well status post CABG.
Continue amiodarone.
Continue aspirin and Plavix
Impression / Plan
-
PCP: Dr. Palencia
Cardiology: Dr. Martin
Impression:
Significant obstructive LM CAD by cath 08/21/23
s/p CABG x3 (Santos to Lad, Karol 'y-graft off Santos' to OM, Karol to Ramus) by Dr. Martinez on 08/23/23
Chest pain leading to cath
FH CAD
Hyperlipidemia
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
FMR
Obese, BMI 39.6
Fatty liver
h/o ETOH use disorder, sober since 2008
Hyperglycemia and pre-diabetes
Hx of migraine DORSEY
Echo 08/21/2023: EF 76%, normal diastolic function, normal RV size and function, no significant valvular pathology
Plan:
Overall doing well status post CABG and remains in sinus rhythm.
Continue aspirin, Plavix, metoprolol, and amiodarone.
Weaning off drips.
Hemoglobin at 8.9
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
Subjective
Date of Service: August 24, 2023
Overall feels well status post CABG. Minimal pain.
Objective
Labs:
08/24/23 03:08
08/24/23 03:08
Labs
Hgb 8.9 g/dL (12.0-16.0) L 08/24/23 03:08
Hct 25.9 % (37.0-47.0) L 08/24/23 03:08
Plt Count 199 10^3/uL (130-400) 08/24/23 03:08
PT 17.1 Sec (11.4-14.6) H 08/23/23 18:27
INR 1.42 08/23/23 18:27
APTT 28.6 Sec (23.4-35.0) 08/23/23 18:27
Sodium 137 mmol/L (135-145) 08/24/23 03:08
Potassium 4.6 mmol/L (3.5-5.1) 08/24/23 03:08
BUN 11 mg/dl (7-17) 08/24/23 03:08
Creatinine 0.7 mg/dL (0.6-1.0) 08/24/23 03:08
Glucose 195 mg/dl (70-99) H 08/24/23 03:08
Vital Signs and I&O:
Vital Signs
Temp Pulse Resp BP Pulse Ox
98.2 F 95 16 93/61 95
08/24/23 08:00 08/24/23 10:00 08/24/23 08:00 08/24/23 10:00 08/24/23 10:00
Vital Signs
Temp Pulse Resp BP Pulse Ox
98.2 F 95 16 93/61 95
08/24/23 08:00 08/24/23 10:00 08/24/23 08:00 08/24/23 10:00 08/24/23 10:00
Intake & Output
08/22/23 08/23/23 08/24/23 08/25/23
06:59 06:59 06:59 06:59
Intake Total 621.3 / 621.3 108.5 / 108.5 899.4 / 981.4 99.3 / 99.3
Output Total 1230 / 1240 10
Balance 621.3 / 621.3 108.5 / 108.5 -330.6 / -258.6 89.3 / 89.3
Physical Exam
Physical Exam
GEN: No distress, awake, Ox3
HEENT: supple, anicteric, mmm
LUNGS: CTA, no wheezes/rales
CV: Reg, S1/S2, no rub
ABD: soft, BS+, NT/ND
EXT: No edema
NEURO: Gross non-focal
SKIN: sternotomy
[2023-08-24] MEDS: DILAUDID 0.25 MG IV ×2 (11:39→22:46)
[2023-08-24] MEDS: XANAX 1 MG PO ×2 (11:39→22:44)
[2023-08-24 11:45] LABS: Glucose - Point of Care 100 mg/dl (70-99)
--- NOTE | 2023-08-24 12:00 | PTCARENOTE ---
pt resting OOB in chair, no changes in assessment. 96% on 1L nasal cannula.
[2023-08-24] MEDS: ProAmatine 5 MG PO ×2 (13:18→17:25)
[2023-08-24] MEDS: ZOFRAN 4 MG IV (13:28)
[2023-08-24 13:35] LABS: Glucose - Point of Care 106 mg/dl (70-99)
--- NOTE | 2023-08-24 14:01 | CON.INTV ---
Consultation
Consultation Request
Date/Time Consultation Requested: 08/24/2023
Date/Time Consultation Performed: 08/24/2023
Requesting Provider: Dr. Martinez
Performing Provider: Dr. Aj Liam
Reason for Consultation: Status post coronary bypass
Medical History
-
History of Present Illness:
53-year-old female with past medical history significant for hyperlipidemia, hypertension, prediabetes, hypothyroidism, Summer's disease, fibromyalgia, fatty liver and mast cell activation syndrome who presented to [facility] for an
elective heart catheterization. She has been experiencing chest pain for over a year.
Patient was found to have left main disease. CT surgery was consulted.
Underwent coronary artery bypass on 08/23/2023 without complications.
Past Medical History
Past Medical History: Other (See assessment and plan section)
Social History
Tobacco: Former Smoker (Quit in 2009)
Drug: None
Personal:
Living: With Family
Employment: Not Employed
Family History
Family History: Reviewed & Not Pertinent
Allergies / Home Medications
Allergies
Allergy/AdvReac Type Severity Reaction Status Date / Time
Nauysmu-WGM-TnO Reductase Allergy Severe Hives Verified 08/21/23 07:30
Inhibitor
shellfish derived AdvReac Intermediate Hives Verified 08/21/23 10:38
cephalexin [From Keflex] AdvReac Mild Itching Verified 08/21/23 10:38
coconut AdvReac Mild Rash Verified 08/21/23 10:38
peanut AdvReac Mild Rash Verified 08/21/23 10:38
pineapple AdvReac Mild Rash Verified 08/21/23 10:38
Home Medications
�Medication �Instructions �Recorded �Confirmed �Last Taken �Type
aspirin 81 mg capsule 324 mg PO DAILY Blood Clot 08/21/23 08/21/23 08/21/23 07:10 History
Prevention/Tx 324 MG
atorvastatin 10 mg tablet (Lipitor) 10 mg PO HS High Cholesterol 08/21/23 08/21/23 08/20/23 21:00 History
10 MG
duloxetine 30 mg capsule,delayed 30 mg PO DAILY Mental 08/21/23 08/21/23 08/20/23 09:00 History
release (Cymbalta) Health/Anxiety 30 MG
levothyroxine 137 mcg tablet 137 mcg PO DAILY Thyroid 08/21/23 08/21/23 08/20/23 09:00 History
(Synthroid) 137 MCG
propranolol 80 mg capsule,extended 80 mg PO DAILY Blood Pressure 08/21/23 08/21/23 08/21/23 05:30 History
release 24 hr 80 MG
valsartan 40 mg tablet (Diovan) 80 mg PO DAILY Blood Pressure 08/21/23 08/21/23 08/20/23 09:00 History
80 MG
Review of Systems
-
History Source: Patient
All other systems: Negative unless noted
Vitals / Labs / Diagnostic Testing
Vital Signs
Temp Pulse Resp BP Pulse Ox
98.2 F 94 16 93/64 94
08/24/23 08:00 08/24/23 13:30 08/24/23 08:00 08/24/23 13:30 08/24/23 13:30
Lab Data
08/24/23 03:08
08/24/23 03:08
Laboratory Results
08/23/23 08/23/23 08/23/23
18:27 19:54 21:08
PT 17.1 H
INR 1.42
APTT 28.6
pH 7.28 L 7.29 L 7.37
pCO2 43 H 36 H 44 H
pO2 113 H 105 113 H
HCO3 20.2 L 17.3 L 25.4
O2 Delivery Level Not Reportable Not Reportable Rr 18, fio2 60
08/23/23 08/24/23
22:28 01:06
PT
INR
APTT
pH 7.36 7.40
pCO2 44 H 39 H
pO2 125 H 99
HCO3 24.9 24.2
O2 Delivery Level
Diagnostic Testing:
Physical Exam
-
HEENT: Normocephalic
Cardiovascular: S1/S2
Respiratory: Clear and Other (Chest tube in place without air leak)
GI: Soft and Non Distended
Neurology: Awake and No Motor Deficits
Skin: Warm
General: Respiratory Distress (n)
Assessment
-
Status post coronary artery bypass
Postoperative anemia
Conditions present prior admission:
Hyperlipidemia
Hypertension
Prediabetes
Hypothyroidism
Summer's disease
Fibromyalgia
Fatty liver
Mast cell activation syndrome
Former smoker quit in 2009
obesity
Assessment and plan:
Extubated routinely after surgery.
On low rate supplemental oxygen
Pain is relatively well-controlled
Encourage incentive spirometry
Out of bed as able per protocol
Anemia noted-no evidence of acute bleeding
Hemoglobin 8.9.
Follow H&H serially
Hemodynamics -off vasopressors
Normal renal function
Adequate urinary output
Chest tube with no excessive drainage-no air leak.
Chest x-ray reviewed: With no pneumothorax or fluid collections. Minimal atelectasis on the left midlung.
Advance diet as tolerated
Head of the bed elevation
Glycemic control per protocol
At risk for obstructive sleep apnea. Recommend outpatient evaluation. Discussed with patient. She is agreeable.
Information will be left in the chart
DVT prophylaxis when safe from the surgical perspective.
No additional recommendation from the critical care perspective.
Patient progressing as expected.
Sign off
[2023-08-24 15:36] LABS: Glucose - Point of Care 168 mg/dl (70-99)
[2023-08-24 17:28] LABS: Glucose - Point of Care 157 mg/dl (70-99)
[2023-08-24] MEDS: LIPITOR 80 MG PO (17:51)
[2023-08-24] MEDS: FLEXERIL 5 MG PO (17:52)
[2023-08-24] MEDS: NSS IV (18:15)
[2023-08-24 18:16] LABS: Glucose - Point of Care 111 mg/dl (70-99)
[2023-08-24] MEDS: VITAMIN C 500 MG PO (19:42)
[2023-08-24] MEDS: LOPRESSOR 12.5 MG PO (19:42)
--- NOTE | 2023-08-24 21:30 | PTCARENOTE ---
assumed care of patient @ 1900. received pt sitting in chair, AOX3. VSS on RA. SR/ST , +pulses +1 edema. Lungs clear, diminished satting low 92-93 on room air. L and R pleural to bulb suction. Round belly, hypoactive sounds, poor appetite
reportedly. voiding spontaneously in hat clear yellow urine. 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 surgical bra in place. R forearm, L hand, R IJ cordis all patent. 5 of lester given for pain, pt assisted back to bed, call cline within reach.
[2023-08-24 23:05] LABS: Glucose - Point of Care 141 mg/dl (70-99)
[2023-08-25] VITALS (9 sets, daily range): BP systolic 101–136; BP diastolic 66–84; BMI 40.3
--- NOTE | 2023-08-25 00:40 | PTCARENOTE ---
pt resting comfortably in bed, no change in assessment.
[2023-08-25] MEDS: ROXICODONE 5 MG PO ×4 (03:03→22:27)
[2023-08-25 03:06] LABS: Hematocrit 24.4 % (37.0-47.0); Hemoglobin 7.9 g/dL (12.0-16.0); Mean Corp Hgb Conc. 32.4 g/dL (33.0-37.0); Mean Corpuscular Hgb 29.7 pg (27.0-31.0); Mean Corpuscular Volume 91.7 fL (81.0-99.0); Mean Platelet Volume 10.7 fL (7.4-10.4); Platelet Count 161 10^3/uL (130-400); Red Blood Cell Count 2.66 10^6/uL (4.20-5.40); Red Cell Dist. Width 13.8 % (11.5-14.5); White Blood Cell Count 9.4 10^3/uL (4.8-10.8)
[2023-08-25 03:19] LABS: Blood Urea Nitrogen 8 mg/dl (7-17); Calcium 8.4 mg/dl (8.4-10.2); Carbon Dioxide 27 mmol/L (22-30); Chloride 101 mmol/L (98-107); Estimated Creatinine Clearance > 125 ml/min; Glucose 134 mg/dl (70-99); Potassium 4.5 mmol/L (3.5-5.1); Sodium 134 mmol/L (135-145); eGFR > 60.00
--- NOTE | 2023-08-25 04:00 | PTCARENOTE ---
no change in assessment, oxy given for pain, call cline within reach.
--- NOTE | 2023-08-25 05:50 | W.PN.CT ---
Today's Communication / Plan
-
-pod 2
-no issues overnight.
-CT output: Lt pleur 15/125, Rt pleur 15/85 in 12/24 hrs
-UO 1100/1700 in 12/24 hrs
-discontinue CT's
-current meds (ASA, Plavix, Lopressor, Amio, Lipitor, Protonix)
-encourage IS, OOB
Assessment / Plan
-
- MV-CAD with LM dz - s/p CABG x3 (Santos to Lad, Karol 'y-graft off Santos' to OM, Karol to Ramus) by Dr. Martinez on 08/23/23, pod #2
- Intraop LEONOR: normal EF 76% pre and post with no wma, nl RV
- HTN/HLD
- Pre-DM II (HgA1c 6.3)
- Class 2 obesity (BMI 39)
- Hypothyroidism/ Summer's disease
- Fibromyalgia
- Fatty liver
- Mast cell activation syndrome
- Former smoker, quit in 2009
- Acute postop blood loss anemia- stable, no active bleed
- Acute postop atelectasis
- Suspected acute postop pericarditis on ECG
Subjective
Procedure
- s/p CABG x3 (Santos to Lad, Karol 'y-graft off Santos' to OM, Karol to Ramus) by Dr. Martinez on 08/23/23
-
Date of Service: August 25, 2023
Objective Data
-
Lab Results
08/25/23 02:59
08/25/23 02:59
PT 17.1 Sec (11.4-14.6) H 08/23/23 18:27
INR 1.42 08/23/23 18:27
APTT 28.6 Sec (23.4-35.0) 08/23/23 18:27
Vital Signs
Vital Signs
Temp Pulse Resp BP Pulse Ox
98.1 F 97 14 126/73 96
08/25/23 00:00 08/25/23 03:30 08/25/23 03:56 08/25/23 02:42 08/25/23 03:56
CT Intake/Output/Weight
08/24/23 08/24/23 08/25/23
06:59 18:59 06:59
Intake Total 763.8 / 981.4 404.1 / 984.1 580 / 984.1
Output Total 1020 / 1240 790 / 1920 1130 / 1920
Balance -256.2 / -258.6 -385.9 / -935.9 -550 / -935.9
SaO2: 96
Physical Exam
-
General: AOx3
Cardiovascular: Regular rate & rhythm
Respiratory: Decreased Breath Sounds (at bases)
Sternum: Stable
Incision: Clean, Dry and Intact
Extremities: Edema +1
Data Reviewed
-
Lab Results: Results Reviewed
Chest X-Ray: Image Reviewed
[2023-08-25] MEDS: TYLENOL 1000 MG PO ×3 (05:54→22:27)
[2023-08-25] MEDS: SYNTHROID 137 MCG PO (05:55)
[2023-08-25] MEDS: NOVOLOG FLEXPEN-MODERATE RESISTANCE SC ×2 (08:00→13:54)
[2023-08-25] MEDS: TORADOL 15 MG IV (08:27)
[2023-08-25] MEDS: ZOFRAN 4 MG IV (08:27)
[2023-08-25] MEDS: LASIX 40 MG IV (08:27)
[2023-08-25] MEDS: PROTONIX 40 MG PO (08:29)
--- NOTE | 2023-08-25 08:36 | PTCARENOTE ---
assumed care of pt from previous shift RN, sinus rhythm on tele, + peripheral pulses, trace edema to bilateral lower extremities and hands. Lungs diminished, pox 90-92% on RA, coughing and deep breathing encouraged. +bs, c/o intermittent nausea-
medicated w zofran as ordered. Voids spontaneously, yellow urine. MSI approximated, pleural CTs removed as ordered- dressing applied to CT sites. Epicardial V wire insulated. Right IJ cordis slow to flush, PIV flushes easily. Pt medicated for pain.
Plan of care reviewed w the pt and question encouraged.
[2023-08-25] MEDS: VITAMIN C 500 MG PO ×2 (08:58→20:17)
[2023-08-25] MEDS: SENOKOT-S 1 TABLET PO ×2 (08:58→20:17)
[2023-08-25] MEDS: LOW STRENGTH ASPIRIN 81 MG PO (08:58)
[2023-08-25] MEDS: PLAVIX 75 MG PO (08:58)
[2023-08-25] MEDS: LOPRESSOR 25 MG PO ×2 (08:58→20:17)
[2023-08-25] MEDS: FEOSOL 325 MG PO (08:58)
[2023-08-25] MEDS: ProAmatine 5 MG PO ×3 (08:58→16:49)
[2023-08-25] MEDS: CYMBALTA DELAYED RELEASE 30 MG PO (08:58)
[2023-08-25] MEDS: NEURONTIN 100 MG PO ×3 (08:59→22:27)
[2023-08-25] MEDS: LIDOCAINE 4% PATCH TOPICAL (08:59)
[2023-08-25] MEDS: MAGNESIUM OXIDE 500 MG PO ×2 (08:59→20:17)
[2023-08-25] MEDS: BACTROBAN 2% OINTMENT 1 APPLIC NASAL ×2 (08:59→20:18)
--- NOTE | 2023-08-25 09:30 | W.PN.CARDCBS ---
Today's Communication / Plan
-
Remains in sinus rhythm. Continue aspirin and Plavix.
Has some mild sinus tachycardia. Follow hemoglobin at 7.9
May need to further titrate metoprolol.
Impression / Plan
-
PCP: Dr. Palencia
Cardiology: Dr. Martin
Impression:
Significant obstructive LM CAD by cath 08/21/23
s/p CABG x3 (Santos to Lad, Karol 'y-graft off Santos' to OM, Karol to Ramus) by Dr. Martinez on 08/23/23
Chest pain leading to cath
FH CAD
Hyperlipidemia
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
FMR
Obese, BMI 39.6
Fatty liver
h/o ETOH use disorder, sober since 2008
Hyperglycemia and pre-diabetes
Hx of migraine DORSEY
Echo 08/21/2023: EF 76%, normal diastolic function, normal RV size and function, no significant valvular pathology
Plan:
Overall doing well status post CABG and remains in sinus rhythm.
Continue aspirin, Plavix, metoprolol. Has some mild sinus tachycardia. Continue to titrate metoprolol.
Hemoglobin at 7.0
Progress Note - Cadd Operator
Subjective
Date of Service: August 25, 2023
Overall feels well. Pain is tolerable.
Objective
Labs:
08/25/23 02:59
08/25/23 02:59
Labs
Hgb 7.9 g/dL (12.0-16.0) L 08/25/23 02:59
Hct 24.4 % (37.0-47.0) L 08/25/23 02:59
Plt Count 161 10^3/uL (130-400) 08/25/23 02:59
PT 17.1 Sec (11.4-14.6) H 08/23/23 18:27
INR 1.42 08/23/23 18:27
APTT 28.6 Sec (23.4-35.0) 08/23/23 18:27
Sodium 134 mmol/L (135-145) L 08/25/23 02:59
Potassium 4.5 mmol/L (3.5-5.1) 08/25/23 02:59
BUN 8 mg/dl (7-17) 08/25/23 02:59
Creatinine 0.6 mg/dL (0.6-1.0) 08/25/23 02:59
Glucose 134 mg/dl (70-99) H 08/25/23 02:59
Vital Signs and I&O:
Vital Signs
Temp Pulse Resp BP Pulse Ox
98.3 F 108 18 102/84 90
08/25/23 08:00 08/25/23 08:30 08/25/23 08:00 08/25/23 08:00 08/25/23 08:00
Vital Signs
Temp Pulse Resp BP Pulse Ox
98.3 F 108 18 102/84 90
08/25/23 08:00 08/25/23 08:30 08/25/23 08:00 08/25/23 08:00 08/25/23 08:00
Intake & Output
08/23/23 08/24/23 08/25/23 08/26/23
06:59 06:59 06:59 06:59
Intake Total 108.5 / 108.5 899.4 / 981.4 984.1 / 984.1
Output Total 1230 / 1240 2420 / 2420 800 / 800
Balance 108.5 / 108.5 -330.6 / -258.6 -1435.9 / -1435.9 -780 / -780
Physical Exam
Physical Exam
GEN: No distress, awake, Ox3
HEENT: supple, anicteric, mmm
LUNGS: CTA, no wheezes/rales
CV: Reg, S1/S2, no rub
ABD: soft, BS+, NT/ND
EXT: No edema
NEURO: Gross non-focal
SKIN: sternotomy
--- NOTE | 2023-08-25 11:59 | PTCARENOTE ---
assisted pt w ambulating in hallway, tachycardia resolved w rest.
--- NOTE | 2023-08-25 15:00 | PTCARENOTE ---
pt medicated for pain. VS stable, pt tolerating ambulating in room independently.
[2023-08-25] MEDS: LIPITOR 80 MG PO (16:49)
[2023-08-25] MEDS: NSS IV (16:49)
[2023-08-25] MEDS: NOVOLOG FLEXPEN-MODERATE RESISTANCE 1 UNITS SC (16:52)
[2023-08-25 16:53] LABS: Glucose - Point of Care 187 mg/dl (70-99)
--- NOTE | 2023-08-25 20:00 | PTCARENOTE ---
Received pt from dayshift; pt resting comfortably in bed; pt stated pain is 3/10; ST on monitor, VSS; heart sounds audible, radial and DP pulses palpable, trace generalized edema, temp epicardial V-wires insulated; lungs diminished at bases, spo2
98% on RA; + BS x4 quadrants, abdomen, soft non tender, round and obese, pt complains of gas pain, simethicone was given; pt voiding clear yellow urine; surgical sites maintained; right IJ cordis and PIV maintained; call cline within reach; will
continue to monitor.
[2023-08-25] MEDS: FLEXERIL 5 MG PO (20:28)
[2023-08-25] MEDS: MYLICON 80 MG PO (20:28)
[2023-08-25 22:56] LABS: Glucose - Point of Care 128 mg/dl (70-99)
[2023-08-26] VITALS (15 sets, daily range): BP systolic 99–128; BP diastolic 64–86; PULSE 108; O2SAT 95–96; BMI 39.6
--- NOTE | 2023-08-26 | PTCARENOTE ---
Pt assessment unchanged; NSR on monitor, VSS; see MAR for pain management; 2 LNC over night for Spo2 < 90; call cline within reach; will continue to monitor.
--- NOTE | 2023-08-26 01:02 | W.PN.CT ---
Today's Communication / Plan
-
No issues overnight.�
Current meds (ASA, Plavix, Lopressor, Amio, Lipitor, Protonix)�
Not current on home dose propranolol, Lopressor increased to 25 mg Q12�
Received 40mg of lasix on 08/24 �
Encourage IS, OOB�
Assessment / Plan
-
- MV-CAD with LM dz - s/p CABG x3 (Santos to Lad, Karol 'y-graft off Santos' to OM, Karol to Ramus) by Dr. Martinez on 08/23/23, pod #3
- Intraop LEONOR: normal EF 76% pre and post with no wma, nl RV
- HTN/HLD
- Pre-DM II (HgA1c 6.3)
- Class 2 obesity (BMI 39)
- Hypothyroidism/ Summer's disease
- Fibromyalgia
- Fatty liver
- Mast cell activation syndrome
- Former smoker, quit in 2009
- Acute postop blood loss anemia- stable, no active bleed
- Acute postop atelectasis
- Suspected acute postop pericarditis on ECG
Subjective
Procedure
- s/p CABG x3 (Santos to Lad, Karol 'y-graft off Santos' to OM, Karol to Ramus) by Dr. Martinez on 08/23/23
-
Date of Service: August 26, 2023
Objective Data
-
PT 17.1 Sec (11.4-14.6) H 08/23/23 18:27
INR 1.42 08/23/23 18:27
APTT 28.6 Sec (23.4-35.0) 08/23/23 18:27
Vital Signs
Vital Signs
Temp Pulse Resp BP Pulse Ox
98.6 F 99 18 113/79 97
08/26/23 00:00 06/03/24 00:30 08/26/23 00:00 08/26/23 00:28 08/26/23 00:30
CT Intake/Output/Weight
08/25/23 08/25/23 08/26/23
06:59 18:59 06:59
Intake Total 580 / 984.1
Output Total 1630 / 2420 2049 / 0 200 / 2250
Balance -1050 / -1435.9 -2020 / -2220 -200 / -2220
SaO2: 97
Physical Exam
-
General: Awake
Cardiovascular: Regular rate & rhythm
Respiratory: Clear
Sternum: Stable
Incision: Clean and Dry
Extremities: Edema +1
[2023-08-26] MEDS: ROXICODONE 5 MG PO ×3 (03:24→20:52)
--- NOTE | 2023-08-26 04:00 | PTCARENOTE ---
Labs drawn and sent; see MAR for pain management; pt ambulating to restroom with a stand by assist; pt is BLACK and complains of fatigue and weakness; denies feeling lightheaded; call cline within reach; will continue to monitor.
[2023-08-26 04:18] LABS: Hematocrit 25.5 % (37.0-47.0); Hemoglobin 8.2 g/dL (12.0-16.0); Mean Corp Hgb Conc. 32.2 g/dL (33.0-37.0); Mean Corpuscular Hgb 29.8 pg (27.0-31.0); Mean Corpuscular Volume 92.7 fL (81.0-99.0); Mean Platelet Volume 10.8 fL (7.4-10.4); Platelet Count 189 10^3/uL (130-400); Red Blood Cell Count 2.75 10^6/uL (4.20-5.40); Red Cell Dist. Width 13.9 % (11.5-14.5); White Blood Cell Count 7.3 10^3/uL (4.8-10.8)
[2023-08-26 04:41] LABS: Blood Urea Nitrogen 9 mg/dl (7-17); Calcium 8.4 mg/dl (8.4-10.2); Carbon Dioxide 31 mmol/L (22-30); Chloride 100 mmol/L (98-107); Estimated Creatinine Clearance > 125 ml/min; Glucose 126 mg/dl (70-99); Magnesium 2.2 mg/dl (1.6-2.3); Potassium 4.1 mmol/L (3.5-5.1); Sodium 137 mmol/L (135-145); eGFR > 60.00
[2023-08-26] MEDS: TYLENOL 1000 MG PO ×3 (07:00→22:02)
[2023-08-26] MEDS: SYNTHROID 137 MCG PO (07:00)
[2023-08-26 08:19] LABS: Glucose - Point of Care 144 mg/dl (70-99)
[2023-08-26] MEDS: NOVOLOG FLEXPEN-MODERATE RESISTANCE SC ×3 (08:32→17:18)
[2023-08-26] MEDS: LOW STRENGTH ASPIRIN 81 MG PO (08:42)
[2023-08-26] MEDS: PROTONIX 40 MG PO (08:42)
[2023-08-26] MEDS: LOPRESSOR 37.5 MG PO (08:43)
[2023-08-26] MEDS: VITAMIN C 500 MG PO ×2 (08:43→20:20)
[2023-08-26] MEDS: CYMBALTA DELAYED RELEASE 30 MG PO (08:43)
[2023-08-26] MEDS: MAGNESIUM OXIDE 500 MG PO ×2 (08:43→20:20)
[2023-08-26] MEDS: NEURONTIN 100 MG PO ×3 (08:43→22:02)
[2023-08-26] MEDS: PLAVIX 75 MG PO (08:43)
[2023-08-26] MEDS: SENOKOT-S 1 TABLET PO ×2 (08:43→20:20)
[2023-08-26] MEDS: FEOSOL 325 MG PO (08:43)
[2023-08-26] MEDS: ProAmatine 5 MG PO ×2 (08:43→17:28)
[2023-08-26] MEDS: BACTROBAN 2% OINTMENT 1 APPLIC NASAL ×2 (08:45→20:19)
[2023-08-26] MEDS: LIDOCAINE 4% PATCH TOPICAL (08:52)
--- NOTE | 2023-08-26 09:11 | PTCARENOTE ---
assumed care of pt from previous shift RN, sinus rhythm on tele, + peripheral pulses, trace edema to bilateral lower extremities and hands. Lungs diminished, pox 94-96% on RA, coughing and deep breathing encouraged. +bs, c/o intermittent nausea-
Voids spontaneously, yellow urine. MSI approximated. Epicardial V wire insulated. Right IJ cordis slow to flush, PIV flushes easily. Pt medicated for pain. Plan of care reviewed w the pt and question encouraged.
--- NOTE | 2023-08-26 10:50 | PTCARENOTE ---
cordis removed without incident.
[2023-08-26] MEDS: XANAX 1 MG PO (11:57)
--- NOTE | 2023-08-26 12:43 | PTCARENOTE ---
VSS, sinus tach maintained on tele. pt worked w cardiac rehab, tolerated steps. Medicated for pain and anxiety. Resting comfortably.
--- NOTE | 2023-08-26 14:48 | CM ---
dc plan remains home when medically stable and f/u visit from ct transitional care nurse
[2023-08-26] MEDS: NSS IV (16:24)
[2023-08-26 17:17] LABS: Glucose - Point of Care 125 mg/dl (70-99)
[2023-08-26] MEDS: LIPITOR 80 MG PO (17:28)
--- NOTE | 2023-08-26 17:58 | W.PN.CARDCBS ---
Today's Communication / Plan
-
Doing well postop day 3
Impression / Plan
-
PCP: Dr. Palencia
Cardiology: Dr. Martin
Impression:
Significant obstructive LM CAD by cath 08/21/23
s/p CABG x3 (Santos to Lad, Karol 'y-graft off Santos' to OM, Karol to Ramus) by Dr. Martinez on 08/23/23
Chest pain leading to cath
FH CAD
Hyperlipidemia
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
FMR
Obese, BMI 39.6
Fatty liver
h/o ETOH use disorder, sober since 2008
Hyperglycemia and pre-diabetes
Hx of migraine DORSEY
Echo 08/21/2023: EF 76%, normal diastolic function, normal RV size and function, no significant valvular pathology
Plan:
She looks well postop day 3.
Hemoglobin is improved
If blood pressure holds, we could uptitrate metoprolol
Anticipate discharge in 24 to 48 hours
Progress Note - Mine Analyst
Subjective
Date of Service: August 26, 2023:
Some incisional discomfort, she is anxious about resting heart rate slightly over 100
PMH/PSH/SH/SH: Reviewed
Allergies, outpatient meds, current meds: Reviewed
ROS: Negative except as above
116/73, pulse 114, rr 20
Head neck exam unremarkable, lungs are clear, regular rate and rhythm, chest incision intact, abdomen obese, extremities without clubbing cyanosis or edema distal pulses intact
Hemoglobin 8.2, BUN/creatinine 9 and 0.6, potassium 4.1, CO2 31
Chest x-ray: Relatively clear
Objective
Labs:
08/26/23 03:46
08/26/23 03:46
Labs
Hgb 8.2 g/dL (12.0-16.0) L 08/26/23 03:46
Hct 25.5 % (37.0-47.0) L 08/26/23 03:46
Plt Count 189 10^3/uL (130-400) 08/26/23 03:46
PT 17.1 Sec (11.4-14.6) H 08/23/23 18:27
INR 1.42 08/23/23 18:27
APTT 28.6 Sec (23.4-35.0) 08/23/23 18:27
Sodium 137 mmol/L (135-145) 08/26/23 03:46
Potassium 4.1 mmol/L (3.5-5.1) 08/26/23 03:46
BUN 9 mg/dl (7-17) 08/26/23 03:46
Creatinine 0.6 mg/dL (0.6-1.0) 08/26/23 03:46
Glucose 126 mg/dl (70-99) H 08/26/23 03:46
Vital Signs and I&O:
Vital Signs
Temp Pulse Resp BP Pulse Ox
36.6 C 114 20 116/73 96
08/26/23 14:25 08/26/23 17:28 08/26/23 14:25 08/26/23 17:28 08/26/23 14:25
Vital Signs
Temp Pulse Resp BP Pulse Ox
36.6 C 114 20 116/73 96
08/26/23 14:25 08/26/23 17:28 08/26/23 14:25 08/26/23 17:28 08/26/23 14:25
Intake & Output
08/24/23 08/25/23 08/26/23 08/27/23
07:59 07:59 07:59 07:59
Intake Total 981.4 / 998.7 902.1 / 912.1 30 / 130 100 / 100
Output Total 1240 / 1240 2410 / 2660 3100 / 3100 1100 / 1100
Balance -258.6 / -241.3 -1507.9 / -1747.9 -3070 / -2970 -1000 / -1000
Physical Exam
Physical Exam
See above
--- NOTE | 2023-08-26 20:00 | PTCARENOTE ---
Received pt from dayshift; pt resting comfortably in bed; pt stated pain is 5/10; ST/SR on monitor, VSS; heart sounds audible, radial and DP pulses palpable, trace generalized edema, temp epicardial V-wires insulated; lungs diminished at bases, spo2
93% on RA; + BS x4 quadrants, abdomen, soft non tender, round and obese; pt voiding clear yellow urine; surgical sites maintained; PIV maintained; call cline within reach; will continue to monitor.
[2023-08-26] MEDS: CORDARONE 103 MG IV (20:30)
[2023-08-26] MEDS: CALCIUM GLUCONATE 100 IV (20:53)
--- NOTE | 2023-08-26 21:00 | PTCARENOTE ---
Pt assessment unchanged; 50mg lopressor held; Amilo bolus given instead to help reduce HR; IV calcium gluconate give to improve BP; will continue to monitor.
[2023-08-27] VITALS (14 sets, daily range): BP systolic 120–145; BP diastolic 78–100; BMI 39.4
--- NOTE | 2023-08-27 | PTCARENOTE ---
Pt assessment unchanged; pt resting comfortable in bed; call cline within reach; will continue to monitor.
--- NOTE | 2023-08-27 04:00 | PTCARENOTE ---
Pt assessment unchanged; ST on monitor, VSS; pt resting comfortably in bed' labds drawn and sent; call cline within reach; will continue to monitor.
[2023-08-27 04:14] LABS: Hematocrit 24.3 % (37.0-47.0); Hemoglobin 7.7 g/dL (12.0-16.0); Mean Corp Hgb Conc. 31.7 g/dL (33.0-37.0); Mean Corpuscular Hgb 29.3 pg (27.0-31.0); Mean Corpuscular Volume 92.4 fL (81.0-99.0); Mean Platelet Volume 10.7 fL (7.4-10.4); Platelet Count 206 10^3/uL (130-400); Red Blood Cell Count 2.63 10^6/uL (4.20-5.40); Red Cell Dist. Width 13.9 % (11.5-14.5); White Blood Cell Count 5.3 10^3/uL (4.8-10.8)
[2023-08-27] MEDS: ROXICODONE 5 MG PO (04:27)
[2023-08-27 04:38] LABS: Blood Urea Nitrogen 7 mg/dl (7-17); Calcium 8.6 mg/dl (8.4-10.2); Carbon Dioxide 29 mmol/L (22-30); Chloride 101 mmol/L (98-107); Estimated Creatinine Clearance > 125 ml/min; Glucose 116 mg/dl (70-99); Magnesium 2.2 mg/dl (1.6-2.3); Sodium 138 mmol/L (135-145); eGFR > 60.00
--- NOTE | 2023-08-27 04:42 | W.PN.CT ---
Today's Communication / Plan
-
Plan:
-No major issues overnight. Hemodynamically and neurologically intact
-Noted to be hypotensive requiring Midodrine which is currently on hold given improving BP
-Noted to be tachycardic with ambulation. Will start Toprol XL 12.5 mg BID and increase Amiodarone to 400 TID
-Cont. current meds (ASA, Plavix, Lopressor, Amio, Lipitor, Protonix)�
-Monitor h/h 7.7/24.3, was 8.2/25.5 yesterday
-F/U 2-view cxr
-Encourage use of IS
-OOB into chair/Ambulate
-Home later today vs tomorrow
Assessment / Plan
-
- MV-CAD with LM dz - s/p CABG x3 (Santos to Lad, Karol 'y-graft off Santos' to OM, Karol to Ramus) by Dr. Martinez on 08/23/23, pod #4
- Intraop LEONOR: normal EF 76% pre and post with no wma, nl RV
- HTN/HLD
- Pre-DM II (HgA1c 6.3)
- Class 2 obesity (BMI 39)
- Hypothyroidism/ Summer's disease
- Fibromyalgia
- Fatty liver
- Mast cell activation syndrome
- Former smoker, quit in 2009
- Acute postop blood loss anemia- stable, no active bleed
- Acute postop atelectasis
- Suspected acute postop pericarditis on ECG
Discussed patient care with: Cardiology, Nursing, Respiratory Therapy, Pharmacy and Care Team
Subjective
Procedure
- s/p CABG x3 (Santos to Lad, Karol 'y-graft off Santos' to OM, Karol to Ramus) by Dr. Martinez on 08/23/23
-
Date of Service: August 27, 2023
Pt c/o mild incisional pain. Also c/o light headedness when OOB
Objective Data
-
Lab Results
08/27/23 03:51
08/27/23 03:51
PT 17.1 Sec (11.4-14.6) H 08/23/23 18:27
INR 1.42 08/23/23 18:27
APTT 28.6 Sec (23.4-35.0) 08/23/23 18:27
Vital Signs
Vital Signs
Temp Pulse Resp BP Pulse Ox
98.5 F 100 20 104/80 95
08/27/23 03:53 08/27/23 03:00 08/27/23 03:53 08/26/23 23:48 08/27/23 03:53
CT Intake/Output/Weight
08/26/23 08/26/23 08/27/23
06:59 18:59 06:59
Intake Total 100 / 100
Output Total 750 / 2800 1400 / 2500 1100 / 2500
Balance -750 / -2770 -1300 / -2400 -1100 / -2400
SaO2: 95
Data Reviewed
-
Lab Results: Results Reviewed
Medications: Active Meds Reviewed
Chest X-Ray: Report Reviewed and Image Reviewed
ECG: Report Reviewed and Image Reviewed
[2023-08-27] MEDS: SYNTHROID 137 MCG PO (05:37)
[2023-08-27] MEDS: TYLENOL 1000 MG PO ×3 (05:37→22:16)
[2023-08-27 07:37] LABS: Glucose - Point of Care 140 mg/dl (70-99)
[2023-08-27] MEDS: NOVOLOG FLEXPEN-MODERATE RESISTANCE SC ×3 (07:40→17:18)
--- NOTE | 2023-08-27 07:43 | PTCARENOTE ---
Patient received from slot shift manager resting comfortably oob in chair, AAO X 3, states pain controlled at this time. NSR/ST via cm, SaO2 @ 96% on RA. Epicardial V-wire, insulated to chest wall. All procedural sites stable. Patient updated to plan of
care for the day, in agreement. See work list for full assessment and interventions performed.
[2023-08-27] MEDS: LASIX 20 MG IV (08:27)
[2023-08-27] MEDS: NEURONTIN 100 MG PO ×3 (08:27→22:16)
[2023-08-27] MEDS: LOW STRENGTH ASPIRIN 81 MG PO (08:27)
[2023-08-27] MEDS: PROTONIX 40 MG PO (08:27)
[2023-08-27] MEDS: CYMBALTA DELAYED RELEASE 30 MG PO (08:28)
[2023-08-27] MEDS: MAGNESIUM OXIDE 500 MG PO ×2 (08:28→19:47)
[2023-08-27] MEDS: PLAVIX 75 MG PO (08:28)
[2023-08-27] MEDS: PACERONE 400 MG PO ×3 (08:28→22:16)
[2023-08-27] MEDS: SENOKOT-S 1 TABLET PO (08:28)
[2023-08-27] MEDS: FEOSOL 325 MG PO (08:28)
[2023-08-27] MEDS: VITAMIN C 500 MG PO ×2 (08:28→19:47)
[2023-08-27] MEDS: LIDOCAINE 4% PATCH TOPICAL (08:29)
[2023-08-27] MEDS: BACTROBAN 2% OINTMENT 1 APPLIC NASAL (08:34)
[2023-08-27] MEDS: NSS IV (09:46)
[2023-08-27] MEDS: TOPROL XL 50 MG PO (10:49)
--- NOTE | 2023-08-27 11:24 | PTCARENOTE ---
VS obtained, assessment unchanged. Patient resting comfortably.
--- NOTE | 2023-08-27 11:48 | PTCARENOTE ---
Patient c/o tenderness to L hand PIV. Site assessed, no redness or edema noted. PIV d/c'd. Extremity elevated, warm compress applied.
[2023-08-27 12:25] LABS: Glucose - Point of Care 113 mg/dl (70-99)
[2023-08-27] MEDS: TOPROL XL 25 MG PO (13:47)
[2023-08-27 14:40] LABS: Glucose - Point of Care 138 mg/dl (70-99)
--- NOTE | 2023-08-27 16:10 | PTCARENOTE ---
Patient remains oob in chair, ambulatory in room ad beau. Denies pain.
[2023-08-27] MEDS: DULCOLAX 5 MG PO (16:37)
[2023-08-27] MEDS: KCL 40 MEQ PO (16:37)
[2023-08-27] MEDS: LASIX 40 MG IV (16:37)
--- NOTE | 2023-08-27 17:02 | W.PN.CARDCBS ---
Today's Communication / Plan
-
Stable cardiology status status post cabg
Impression / Plan
-
PCP: Dr. Palencia
Cardiology: Dr. Martin
Impression:
Significant obstructive LM CAD by cath 08/21/23
s/p CABG x3 (Santos to Lad, Karol 'y-graft off Santos' to OM, Karol to Ramus) by Dr. Martinez on 08/23/23
Chest pain leading to cath
FH CAD
Hyperlipidemia
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
FMR
Obese, BMI 39.6
Fatty liver
h/o ETOH use disorder, sober since 2008
Hyperglycemia and pre-diabetes
Hx of migraine DORSEY
Echo 08/21/2023: EF 76%, normal diastolic function, normal RV size and function, no significant valvular pathology
Plan:
Continues to do very well
Remains in sinus rhythm
Chest tubes are out
Remains anemic with hemoglobin of 7.7
Hopefully discharge on 08/27
Progress Note - Help Desk Support Specialist
Subjective
Date of Service: August 27, 2023
No complaints
Objective
Labs:
08/27/23 03:51
08/27/23 03:51
Labs
Hgb 7.7 g/dL (12.0-16.0) L 08/27/23 03:51
Hct 24.3 % (37.0-47.0) L 08/27/23 03:51
Plt Count 206 10^3/uL (130-400) 08/27/23 03:51
PT 17.1 Sec (11.4-14.6) H 08/23/23 18:27
INR 1.42 08/23/23 18:27
APTT 28.6 Sec (23.4-35.0) 08/23/23 18:27
Sodium 138 mmol/L (135-145) 08/27/23 03:51
Potassium 4.0 mmol/L (3.5-5.1) 08/27/23 03:51
BUN 7 mg/dl (7-17) 08/27/23 03:51
Creatinine 0.5 mg/dL (0.6-1.0) L 08/27/23 03:51
Glucose 116 mg/dl (70-99) H 08/27/23 03:51
Vital Signs and I&O:
Vital Signs
Temp Pulse Resp BP Pulse Ox
98.4 F 94 15 132/88 98
08/27/23 16:14 08/27/23 16:37 08/27/23 16:14 08/27/23 16:37 08/27/23 16:14
Vital Signs
Temp Pulse Resp BP Pulse Ox
98.4 F 94 15 132/88 98
08/27/23 16:14 08/27/23 16:37 08/27/23 16:14 08/27/23 16:37 08/27/23 16:14
Intake & Output
08/25/23 08/26/23 08/27/23 08/28/23
06:59 06:59 06:59 06:59
Intake Total 984.1 / 984.1 30 / 30 100 / 100 1220 / 1220
Output Total 2420 / 2420 2800 / 2800 2500 / 2500 2900 / 2900
Balance -1435.9 / -1435.9 -2770 / -2770 -2400 / -2400 -1680 / -1680
Physical Exam
Physical Exam
General: Well developed, well nourished in NAD.
Neck: Supple, no JVD, HJR, carotids +2 B/L, no bruits bilaterally.
Heart: Non displaced PMI, RRR, no murmurs, No S3, S4, no rubs.
Lungs: Scattered rhonchi
Sternal dressings noted
Extremities: No clubbing, cyanosis or edema bilaterally.
Neuro: Grossly nonfocal, awake, alert and oriented x3.
[2023-08-27] MEDS: LIPITOR 80 MG PO (17:18)
[2023-08-27 17:20] LABS: Glucose - Point of Care 114 mg/dl (70-99)
[2023-08-27] MEDS: ZOFRAN 4 MG IV (18:36)
[2023-08-27] MEDS: TOPROL XL 75 MG PO (19:47)
[2023-08-27] MEDS: SENOKOT-S PO (19:47)
--- NOTE | 2023-08-27 20:00 | PTCARENOTE ---
Pt received from sahara RN. Pt AAOx3. Walking independently around the room and into/out of the bed/chair ad beau. Pt SR to sinus tach on the monitor. HR 90-100s. Temporary epicardial v-wires insulated. BP stable. Palpable pulses. Generalized
edema. Pt on RA. POX 99%. Lung sounds diminished at the base. Deep breathing and IS encouraged. Abdomen soft/nontender. +BS. Pt c/o stomach discomfort from not being able to have a BM. No nausea at this time. Pt voiding clear/yellow urine. Sternal
incision approximated and MILL TENDER WASHING. CT dressing CDI. PIVx2 CDI. Denies pain at this time. See worklist for full assessment, VS, and interventions. Call cline within reach.
[2023-08-27] MEDS: BENADRYL 25 MG PO (23:09)
[2023-08-28] VITALS (8 sets, daily range): BP systolic 103–138; BP diastolic 77–97; PULSE 91; O2SAT 98–99; BMI 38.7
--- NOTE | 2023-08-28 00:35 | PTCARENOTE ---
Previous assessment unchanged. Pt SR on the monitor. HR 80s. BP stable. RA. POX 99%. Pt given Benadryl for itching near the chest and trouble sleeping. Denies pain. Call cline within reach.
--- NOTE | 2023-08-28 04:40 | PTCARENOTE ---
Previous assessment unchanged. Pt SR on the monitor. HR 80s. BP stable. RA. Pt ambulating independently around the room as needed. Labs drawn and sent. Call cline within reach.
[2023-08-28 04:42] LABS: Hematocrit 29.7 % (37.0-47.0); Mean Corp Hgb Conc. 32.7 g/dL (33.0-37.0); Mean Corpuscular Hgb 29.1 pg (27.0-31.0); Mean Corpuscular Volume 89.2 fL (81.0-99.0); Mean Platelet Volume 10.5 fL (7.4-10.4); Platelet Count 292 10^3/uL (130-400); Red Blood Cell Count 3.33 10^6/uL (4.20-5.40); White Blood Cell Count 6.5 10^3/uL (4.8-10.8)
[2023-08-28 05:05] LABS: Blood Urea Nitrogen 8 mg/dl (7-17); Calcium 9.1 mg/dl (8.4-10.2); Carbon Dioxide 27 mmol/L (22-30); Chloride 97 mmol/L (98-107); Estimated Creatinine Clearance > 125 ml/min; Glucose 116 mg/dl (70-99); Magnesium 2.4 mg/dl (1.6-2.3); Sodium 135 mmol/L (135-145); eGFR > 60.00
[2023-08-28 05:32] LABS: Hemoglobin 9.7 g/dL (12.0-16.0)
--- NOTE | 2023-08-28 05:38 | W.PN.CT ---
Today's Communication / Plan
-
-pod #5
-doing well, no issues overnight. Feels better after blood transfusion
-s/p 1 pRBC yesterday with bid Lasix. H/h 9.7/29.7 (7.7/24.3 on 08/26)
-diuresed very well- UO 1500/5200 in 12/24 hrs
-weaned off O2 - pOx 98% on RA
-current meds (ASA, Plavix, Lipitor, Amio 400 tid, Toprol XL 75 bid, po iron, vit C, Protonix)
-encourage IS, ambulate
-likely d/c today
Assessment / Plan
-
- MV-CAD with LM dz - s/p CABG x3 (Santos to Lad, Karol 'y-graft off Santos' to OM, Karol to Ramus) by Dr. Martinez on 08/23/23, pod #5
- Intraop LEONOR: normal EF 76% pre and post with no wma, nl RV
- HTN/HLD
- Pre-DM II (HgA1c 6.3)
- Class 2 obesity (BMI 39)
- Hypothyroidism/ Summer's disease
- Fibromyalgia
- Fatty liver
- Mast cell activation syndrome
- Former smoker, quit in 2009
- Acute postop blood loss anemia- stable, no active bleed- s/p 1 pRBC on 08/26
- Acute postop atelectasis
- Suspected acute postop pericarditis on ECG
Discussed patient care with: Nursing and Care Team
Subjective
Procedure
- s/p CABG x3 (Santos to Lad, Karol 'y-graft off Santos' to OM, Karol to Ramus) by Dr. Martinez on 08/23/23
-
Date of Service: August 28, 2023
Objective Data
-
Lab Results
08/28/23 04:13
08/28/23 04:13
PT 17.1 Sec (11.4-14.6) H 08/23/23 18:27
INR 1.42 08/23/23 18:27
APTT 28.6 Sec (23.4-35.0) 08/23/23 18:27
Vital Signs
Vital Signs
Temp Pulse Resp BP Pulse Ox
98.5 F 86 16 122/79 98
08/28/23 04:05 08/28/23 04:05 08/28/23 04:05 08/28/23 04:05 08/28/23 04:05
CT Intake/Output/Weight
08/27/23 08/27/23 08/28/23
06:59 18:59 06:59
Intake Total 1220 / 1220
Output Total 1100 / 2500 3700 / 5200 1500 / 5200
Balance -1100 / -2400 -2480 / -3980 -1500 / -3980
SaO2: 98
Physical Exam
-
General: Awake and AOx3
Cardiovascular: Regular rate & rhythm, No Murmurs and No Rub
Respiratory: Clear
Sternum: Stable
Incision: Clean, Dry and Intact
Extremities: No Edema
Data Reviewed
-
Lab Results: Results Reviewed
Medications: Active Meds Reviewed
Chest X-Ray: Report Reviewed and Image Reviewed
ECG: Report Reviewed and Image Reviewed
[2023-08-28] MEDS: SYNTHROID 137 MCG PO (06:10)
[2023-08-28] MEDS: TYLENOL 1000 MG PO (06:10)
[2023-08-28] MEDS: NOVOLOG FLEXPEN-MODERATE RESISTANCE SC (07:56)
[2023-08-28 07:57] LABS: Glucose - Point of Care 132 mg/dl (70-99)
--- NOTE | 2023-08-28 08:16 | W.DCSUMMARY ---
Discharge Summary
Discharge Data
Date of Admission: 08/21/23
Date of Discharge: 08/28/23
-
Pending Results: No
Hospital Course
Primary care physician:
Dr. Lakia Guzman
Outpatient machinist mate:
Reza martin
Inpatient consultants:
DCA, Trainmaster
Procedures:
1. CABG x3 (WANG- LAD, BASILIA-OM, BASILIA-Ramus)
Primary Diagnosis:
1. left main coronary artery disease
Secondary Diagnoses:
1. Pre-diabetes
2. Hypertension
3. Anxiety
4. Obesity
5. Mast cell activation syndrome
6. Anxiety
7. Hyperlipidemia
HPI: 53-year-old female presented to [facility] on 08/20 for an elective catheterization after having shortness of breath and chest pain with activity for 1 year. Left heart cath revealed left main coronary artery disease and patient was
scheduled for a CABG with Dr. Martinez.
Hospital course:
Patient was electively admitted after a left heart catheter that revealed 70 to 80% left main stenosis. CT surgery was consulted and preoperative workup was completed. Therefore patient was taken to the CV OR on 08/22. Patient received a CABG x [address] Martinez. She returned to the CVICU for her postop recovery on Levophed, Precedex, and insulin infusions. Precedex was weaned off and patient was extubated by 20-45 on postop day 0. On 6 postoperative day #1 Levophed was weaned off
and patient was started on midodrine 5 mg 3 times daily. Mediastinal chest tube was removed and pleural chest tubes were bulb. Moise catheter was removed and beta-florencia was resumed due to sinus tachycardia. Patient was transition from an
insulin infusion to sliding scale insulin. On 08/24 postoperative day #2, pleural chest tubes were removed. She was diuresed with 40 mg of IV Lasix. Due to continued sinus tachycardia patient's Lopressor was uptitrated to 25 mg twice daily. And
she was given Toradol for pain control. On 6/3 postoperative day #3 beta-florencia was increased to 50 mg twice daily and midodrine was weaned off. On 6/4 postoperative day #4, patient was given 1 unit of PRBCs for postoperative anemia and diuresed
with Lasix. Beta-blockers were uptitrated to 75 mg twice daily. 2 view chest x-ray remained stable. Dulcolax was given due to patient's complaint of constipation. On 6/5 postoperative day #5, patient's hemoglobin improved to 9.4 and patient's
heart rate was better controlled so she was deemed stable for discharge.
Home medication changes:
See below
Discharge Plan
-
Patient Disposition: Home (Routine Discharge)
Discharge Diagnosis/Procedures: CABG
Condition: Fair
Diet: Low Cholesterol, Low Sodium and Diabetic, Carb Controlled
Activity: No strenuous activity
Driving Restrictions: Not until seen by your Dr
Bathing Restrictions: OK to Shower
Other Services: Cardiac Rehab
Specialty Instructions: Weigh Daily- Call MD for wt gain/loss 3 lbs overnight/5 lbs in 1 week
Activity Restrictions/Additional Instructions:
Please call [facility] 2 Cardiac Rehab Program at [phone] to schedule your first visit
ACTIVITY:
-No strenuous activity: no heavy lifting, pushing, pulling anything over 15 pounds for one month
-continue to use stairs as tolerated
DRIVING RESTRICTIONS:
-No driving for one month or until approved by your surgeon
WOUND CARE:
-Shower daily. Use soap & water.
-No lotions, creams or powders on incision area.
DIET:
-continue a low fat/low cholesterol diet.
-IF you are diabetic, continue carb controlled diet.
CARDIAC REHAB:
-Please make appointment to start in 5-6 weeks with your local hospital program. (See Cardiac Rehabilitation Discharge Booklet).
SPECIALTY INSTRUCTIONS:
-Weigh yourself daily. Call your physician for any weight gain/loss of 3 lbs overnight or 5 lbs in one week.
-REPORT any clicking noise or uneven appearance of your sternum to your surgeon immediately.
-If you smoke, you are instructed to quit. The [place] smoking hotline phone number is [phone]
Stand Alone Forms: DC Instructions- Cath/EP Lab
Referrals:
CT Transitional Care Nurse [Outside] (The Cardiothoracic Transitional Care Nurse will call you to set up a visit in 1-2 days.)
Lennox Martinze MD [Active] - 09/23/23 9:30 am
Aj Rutledge MD [Active] - in four to six weeks (Sleep evaluation. May see WRAPPER SIZER)
Maikol Palencia DO [Family Provider] -
Reza Martin DO [Affiliate] - 10/22/23 1:30 pm
Additional Discharge Medication Instructions: Stop taking your lipitor 10mg, propanolol, and valsartan until directed otherwise
Prescriptions:
New
atorvastatin 80 mg Tablet
80 mg PO QPM Qty: 60 1RF
acetaminophen 325 mg Tablet
650 mg PO Q4HPRN PRN (Reason: mild pain,headache,temp >101F ) Qty: 0 0RF
clopidogrel 75 mg Tablet
75 mg PO DAILY Qty: 30 0RF
ferrous sulfate [FeroSul] 325 mg (65 mg iron) Tablet
325 mg PO DAILY Qty: 30 0RF
aspirin [Children's Aspirin] 81 mg Tablet,Chewable
81 mg PO DAILY Qty: 0 0RF
metoprolol succinate 25 mg Tablet Extended Release 24 Hr
75 mg PO BID Qty: 90 0RF
ascorbic acid (vitamin C) [Vitamin C] 500 mg Tablet
500 mg PO BID Qty: 30 0RF
pantoprazole 40 mg Tablet,Delayed Release (Dr/Ec)
40 mg PO DAILY Qty: 30 0RF
gabapentin 100 mg Capsule
100 mg PO TID Qty: 30 0RF
oxycodone 5 mg Tablet
2.5 mg PO Q4HPRN PRN (Reason: severe pain) Qty: 10 0RF
docusate sodium [Colace] 100 mg capsule
100 mg PO DAILY Qty: 30 0RF
Rx Instructions:
please take while on iron supplements
Continued
levothyroxine [Synthroid] 137 mcg Tablet
137 mcg PO DAILY
duloxetine [Cymbalta] 30 mg Capsule,Delayed Release(Dr/Ec)
30 mg PO DAILY
Discontinued
atorvastatin [Lipitor] 10 mg Tablet
10 mg PO HS
valsartan [Diovan] 40 mg Tablet
80 mg PO DAILY
propranolol 80 mg Capsule,Extended Release 24hr
80 mg PO DAILY
aspirin 81 mg Capsule
324 mg PO DAILY
Discharge Orders:
Discharge Patient (As Directed); Ordered 08/28/23
Ordered By: Deyanira Aguillon
Care Plan Goals
Care Plan Goals:
Problem: Readiness for enhanced knowledge related to diagnosis and treatment plan
Goal: Understand your diagnosis and treatment plan needs, including medications if applicable.
Instructions: Know your diagnosis, underlying causes and treatment plan options, including medications if applicable. Consult with your health care team to learn about your diagnosis and treatment plan, including medications if applicable.
Discharge Date and Time
Print Language: MAORI
[2023-08-28] MEDS: CYMBALTA DELAYED RELEASE 30 MG PO (08:42)
[2023-08-28] MEDS: PLAVIX 75 MG PO (08:42)
[2023-08-28] MEDS: TOPROL XL 75 MG PO (08:42)
[2023-08-28] MEDS: PACERONE 400 MG PO (08:42)
[2023-08-28] MEDS: MAGNESIUM OXIDE 500 MG PO (08:42)
[2023-08-28] MEDS: LOW STRENGTH ASPIRIN 81 MG PO (08:42)
[2023-08-28] MEDS: VITAMIN C 500 MG PO (08:43)
[2023-08-28] MEDS: FEOSOL 325 MG PO (08:43)
[2023-08-28] MEDS: NEURONTIN 100 MG PO (08:43)
[2023-08-28] MEDS: SENOKOT-S 1 TABLET PO (08:43)
[2023-08-28] MEDS: KCL 20 MEQ PO (08:43)
[2023-08-28] MEDS: PROTONIX 40 MG PO (08:43)
[2023-08-28] MEDS: LIDOCAINE 4% PATCH 1 PATCH TOPICAL (08:44)
--- NOTE | 2023-08-28 09:06 | PTCARENOTE ---
Patient received from hourly shift ambulating ad beau in room, denies pain, states feels better this am. NSR via cm, SaO2 @ 98% on RA. Epicardial V-wire insulated to chest wall. All procedural sites stable. Patient updated to plan of care for the day,
including pending d/c home, in agreement. See work list for full assessment and interventions performed.
[2023-08-28] MEDS: LASIX 20 MG IV (09:16)
--- NOTE | 2023-08-28 09:45 | PTCARENOTE ---
Epicardial V-wire cut by this RN and NEVILLE Pal assist. Patient tolerated well.
--- NOTE | 2023-08-28 11:55 | PTCARENOTE ---
Patient set up to shower, completed independently. PIV removed. Discharge instructions thoroughly reviewed w/patient and spouse, all questions answered. Patient and all belongings transported to waiting vehicle for d/c home.
== END 2023-08-28 12:03 | disposition home or self-care (01) | DRG 234 ==
LOC: CVICU 09:54
PROVIDERS: Anesthesiology; Clinical Nurse Specialist Acute Care; Nurse Practitioner Adult Health; Physician Assistant Medical; ADMITTING PHYSICIAN Internal Medicine Interventional Cardiology; ATTENDING PHYSICIAN Thoracic Surgery (Cardiothoracic Vascular Surgery); CONSULT PHYSICIAN Thoracic Surgery (Cardiothoracic Vascular Surgery); FAMILY PHYSICIAN Family Medicine; OTHER PHYSICIAN Internal Medicine Critical Care Medicine; REFERRING PHYSICIAN Internal Medicine Cardiovascular Disease
PROC: 4A023N7 Measurement of Cardiac Sampling and Pressure, Left Heart, Percutaneous Approach (ICD-10-PCS; 2023-08-21)
PROC: B2111ZZ Fluoroscopy of Multiple Coronary Arteries using Low Osmolar Contrast (ICD-10-PCS; 2023-08-21)
PROC: 4A033BC Measurement of Arterial Pressure, Coronary, Percutaneous Approach (ICD-10-PCS; 2023-08-21)
PROC: B24BZZ4 Ultrasonography of Heart with Aorta, Transesophageal (ICD-10-PCS; 2023-08-23)
PROC: 02110Z8 Bypass Coronary Artery, Two Arteries from Right Internal Mammary, Open Approach (ICD-10-PCS; 2023-08-23)
PROC: 5A1221Z Performance of Cardiac Output, Continuous (ICD-10-PCS; 2023-08-23)
PROC: 02100Z9 Bypass Coronary Artery, One Artery from Left Internal Mammary, Open Approach (ICD-10-PCS; 2023-08-23)
PROC: 30233N1 Transfusion of Nonautologous Red Blood Cells into Peripheral Vein, Percutaneous Approach (ICD-10-PCS; 2023-08-27)
DX: I25.110 Atherosclerotic heart disease of native coronary artery with unstable angina pectoris (principal); D62 Acute posthemorrhagic anemia; J98.11 Atelectasis; I30.9 Acute pericarditis, unspecified; I10 Essential (primary) hypertension; D89.40 Mast cell activation, unspecified; E03.9 Hypothyroidism, unspecified; M79.7 Fibromyalgia; E78.00 Pure hypercholesterolemia, unspecified; K76.0 Fatty (change of) liver, not elsewhere classified; R73.03 Prediabetes; F41.9 Anxiety disorder, unspecified; E66.9 Obesity, unspecified; K59.00 Constipation, unspecified; Z68.39 Body mass index [BMI] 39.0-39.9, adult; Z79.82 Long term (current) use of aspirin; Z79.899 Other long term (current) drug therapy; Z82.49 Family history of ischemic heart disease and other diseases of the circulatory system; Z87.891 Personal history of nicotine dependence
CPT/HCPCS: 71045; 71046; 71250; 80048; 80053; 80061; 81003; 82248; 82330; 82565; 82805; 82947; 82962; 83036; 83721; 83735; 84132; 84302; 84520; 85014; 85018; 85027; 85049; 85610; 85730; 86850; 86900; 86901; 86920; 93005; 93306; 93312; 93320; 93325; 93458; 93880; 94002; C1713; C1894; P9016; P9045; Q9950; Q9967

== ENCOUNTER 2023-09-08 19:02 | Emergency (ER) | payer OTHER, SELFPAY ==
[2023-09-08 19:07] VITALS: BP 152/102
[2023-09-08 20:06] VITALS: BP 144/86
--- NOTE | 2023-09-08 20:33 | ED.GENMED ---
History of Present Illness
General
Chief Complaint: DVT/Possible Blood Clot
Source: patient
Time Seen by Provider: 09/08/23 20:04
Travel History
Have you had any contact with someone who has COVID-19?: No
Do you have any symptoms of coronavirus? Fever > 100 degrees, chills, cough, shortness of breath, sore throat, loss of taste or smell, muscle aches, or headache?: No
History of Present Illness
History of Present Illness:
This patient is a 53-year-old female presents emergency department with complaints of a 'blood blister' noted today while she was cooking at the area where she recently had a catheterization for her heart within the last month. She denies fever,
redness, pain, numbness, weakness, or other complaints.
Past History
Past History
ED Past Medical History: CAD, HTN and Hypercholesterolemia
ED Past Surgical History: Cardiac
Social History
Alcohol: None
Drug: None
Phy Exam
Physical Exam
Physical Exam:
GENERAL: Alert , in no apparent distress
EYE: pupils equal and reactive
NECK: Supple, no significant adenopathy.
ENT: o/p clr, mmm.
CARDIAC: Regular rate and rhythm .
LUNGS: Clear breath sounds bilaterally, no acute respiratory distress, no wheezes/rales/rhonchi
ABDOMEN: Soft, without focal tenderness, no r/g, no cvat
NEUROLOGICAL: Alert and oriented, no focal neuro deficits
SKIN: Warm and dry, skin intact. There is a very small (less than pea sized) 'blood blister' noted at R radial area, no pustule/fluctuance/redness/warmth/ttp. Normal pulse noted, cap refill wnl, rom preserved.
MUSCULOSKELETAL: No edema, well perfused.
PSYCH: Normal and appropriate interaction.
Course
Vital Signs
Initial and Last Documented VS:
Initial Vital Signs
Temp Pulse Resp BP Pulse Ox
98.4 F 84 22 152/102 98
09/08/23 19:07 09/08/23 19:07 09/08/23 19:07 09/08/23 19:07 09/08/23 19:07
Last Documented Vital Signs
Temp Pulse Resp BP Pulse Ox
98.4 F 74 12 139/94 98
09/08/23 19:07 09/08/23 21:00 09/08/23 21:00 09/08/23 21:00 09/08/23 21:00
*Critical Care Note
Total Time (30-74mins, 75-104mins- exclusive of procedures): Not Applicable
Update Note
Update Note:
Patient presents to the Emergency Department with ___'blood blister' at right wrist
Number and Complexity of Problems Addressed at the Encounter
� Chronic conditions affecting care:
� Acute Exacerbation and/or Progression of Chronic Illness:
� Differential Diagnosis includes: But not limited to pseudoaneurysm, hematoma, blood blister, etc.
Amount and/or Complexity of Data to be Reviewed and Analyzed
� I performed an independent evaluation of and my interpretation is:
EKG:
CT:
Xrays:
Laboratory Studies:
Other:
� Review of other/old records reveals:
� Clinical information was obtained by an independent historian:
� Prescriptions/Medications Considered but not given:
� Further testing considered but not performed:
Risk of Complications and/or Morbidity or Mortality of Patient Management
� Social determinants of health affecting care:
� Discussion with other providers (PCP, Hospitalists, Consultants, etc):
� Escalation of care including admission/observation vs risk of discharge considered:case d/w pt's cardiology coverage, dr Kenney. She agrees serious cause of sxs very unlikely, will contact DR Da Silva.
I d/w dr Da Silva, sent him photos. he is also not concerned for infx, pseudoaneurysm, or other worrisome cause. recommends d/c and pt f/u with him in am.
ED Attending Note
-
Portions of this chart may have been created with voice recognition software.� Occasional wrong word or��sound alike� substitutions may have occurred due to the inherent limitations of voice recognition software.
Discharge Plan
Departure
Patient Disposition: Home (Routine Discharge)
Date of Disposition: 09/08/23
Time of Disposition: 21:06
Patient with high blood pressure during this ER visit?: Yes
Condition: Good
Discharge Problem:
Blood blister
Instructions: BLOOD PRESSURE
Prescriptions:
No Action
levothyroxine [Synthroid] 137 mcg Tablet
137 mcg PO DAILY
duloxetine [Cymbalta] 30 mg Capsule,Delayed Release(Dr/Ec)
30 mg PO DAILY
atorvastatin 80 mg Tablet
80 mg PO QPM Qty: 60 1RF
acetaminophen 325 mg Tablet
650 mg PO Q4HPRN PRN (Reason: mild pain,headache,temp >101F ) Qty: 0 0RF
clopidogrel 75 mg Tablet
75 mg PO DAILY Qty: 30 0RF
ferrous sulfate [FeroSul] 325 mg (65 mg iron) Tablet
325 mg PO DAILY Qty: 30 0RF
aspirin [Children's Aspirin] 81 mg Tablet,Chewable
81 mg PO DAILY Qty: 0 0RF
metoprolol succinate 25 mg Tablet Extended Release 24 Hr
75 mg PO BID Qty: 90 0RF
ascorbic acid (vitamin C) [Vitamin C] 500 mg Tablet
500 mg PO BID Qty: 30 0RF
pantoprazole 40 mg Tablet,Delayed Release (Dr/Ec)
40 mg PO DAILY Qty: 30 0RF
gabapentin 100 mg Capsule
100 mg PO TID Qty: 30 0RF
oxycodone 5 mg Tablet
2.5 mg PO Q4HPRN PRN (Reason: severe pain) Qty: 10 0RF
docusate sodium [Colace] 100 mg capsule
100 mg PO DAILY Qty: 30 0RF
Rx Instructions:
please take while on iron supplements
Referrals:
Maikol Palencia DO [Family Provider] -
Adrianna Da Silva MD [Active] - Tomorrow
Activity Restrictions/Additional Instructions:
IF YOU DEVELOP REDNESS, WARMTH, PAIN, FEVER, NUMBNESS, WEAKNESS, BLEEDING, SWELLING, OR OTHER WORRISOME SIGNS, PLEASE RETURN TO THE ER IMMEDIATELY.
Interventions
Interventions:
*Risk Screen - Suicide Last Done: 09/08/23 19:07
*General Assessment Last Done: 09/08/23 21:04
*Neglect/Abuse Screening Last Done: 09/08/23 19:07
ED- Fall Risk Assessment Last Done: 09/08/23 21:04
*ED COVID-19 Vaccine History Last Done: 09/08/23 21:04
ED- Cardiac Assessment Last Done: 09/08/23 20:12
ED- Pulmonary Assessment Last Done: 09/08/23 20:12
ED-Skin Assessment Last Done: 09/08/23 20:12
Discharge Date and Time
Print Language: [place]
[2023-09-08 21:00] VITALS: BP 139/94
== END 2023-09-08 21:14 | disposition home or self-care (01) ==
LOC: EMR 19:02
PROVIDERS: EMERGENCY PHYSICIAN Emergency Medicine; FAMILY PHYSICIAN Family Medicine
DX: S60.821A Blister (nonthermal) of right wrist, initial encounter (principal); X58.XXXA Exposure to other specified factors, initial encounter; I25.10 Atherosclerotic heart disease of native coronary artery without angina pectoris; E78.00 Pure hypercholesterolemia, unspecified; I10 Essential (primary) hypertension
CPT/HCPCS: 99282